=== PATIENT | female | born 1960 | race Hispanic/Latino ===

== ENCOUNTER 2018-09-27 11:39 | Inpatient (IN) | payer SELFPAY ==
[~2018-09-27 11:39] MED LIST: ISOVUE-370 76%-LOCM 1 ML ONE
[2018-09-27 12:53] LABS: #Basophils 0.1 thou/uL (0.0-0.2); #Eosinphils 0.1 thou/uL (0.0-0.7); #Monocytes 0.6 thou/uL (0.11-0.59); #Neutrophils 6.6 thou/uL (1.40-6.50); %Basophils 0.6 % (0.0-1.0); %Eosinophils 0.7 % (0.0-10.0); %Lymphocytes 21.3 % (21.0-51.0); %Monocytes 6.8 % (0.0-10.0); %Neutrophils 70.6 % (42.0-75.0); Hemoglobin 11.2 g/dL (12.0-16.0); MDiff Complete? YES; Mean Corpuscular HGB CONC 29.4 g/dL (32.0-36.0); Mean Corpuscular Hemoglobin 22.2 pg (27.0-31.0); Mean Corpuscular Volume 75.5 fL (78.0-98.0); Mean Platelet Volume 10.7 fL (7.4-10.4); Microcytosis SLIGHT = 6-15 cells (100X) (0-5/hpf); Platelet Count 215 thou/uL (130-400); Polychromasia SLIGHT = 2-3 cells (100X) (0-2/hpf); RBC Distribution Width 16.9 % (11.5-14.5); Red Blood Cell (RBC) Count 5.06 mill/uL (4.20-5.40); White Blood Cell (WBC) Count 9.3 thou/uL (4.8-10.8)
[2018-09-27 13:00] LABS: ALT (SGPT) 21 U/L (8-55); AST (SGOT) 18 U/L (5-34); Albumin 3.6 g/dL (3.5-5.0); Alkaline Phosphatase 86 U/L (40-150); Anion Gap 14 mmol/L (10-20); BUN (Urea Nitrogen) 17 mg/dL (9.8-20.1); Bilirubin, Total 0.6 mg/dL (0.2-1.2); CK (CPK) 40 U/L (29-168); Calc. Creatinine Clearance 0 mL/min (70-130); Calcium 9.3 mg/dL (7.8-10.44); Carbon Dioxide 34 mmol/L (22-29); Chloride 93 mmol/L (98-107); Estimated GFR-MDRD 84; Globulin 3.6 g/dL (2.4-3.5); Glucose 306 mg/dL (70-105); Lipase 12 U/L (8-78); Potassium 3.9 mmol/L (3.5-5.1); Protein, Total 7.2 g/dL (6.0-8.3); Sodium 137 mmol/L (136-145)
[2018-09-27 13:04] LABS: Troponin I 0.016 ng/mL (< 0.028)
[2018-09-27 15:17] LABS: Bilirubin Negative (Negative); Blood, Urine Negative (Negative); Clarity CLEAR (Clear); Glucose, Urine (Dipstick) Negative (Negative); Leukocyte Negative (Negative); Nitrite Negative (Negative); Protein, Urine (Dipstick) Negative (Neg-Trace); pH, Urine 7.5 (5.0-9.0)
[2018-09-27] MEDS ORDERED: Nitroglycerin 2% Ointment 1 INCH/1 GM Packet ONE (15:18)
[2018-09-27] MEDS ORDERED: Furosemide 40 MG/4 ML VIAL ONE (15:18)
--- NOTE | 2018-09-27 15:21 | RAD ---
CHEST 1 VIEW: HISTORY: Dyspnea. COMPARISON: None. FINDINGS: Heart size is enlarged. Mild pulmonary venous congestion. No pneumothorax. Calcific tendinosis right rotator cuff. IMPRESSION: Cardiomegaly with mild pulmonary venous congestion. POS: [facility]
[2018-09-27 15:26] LABS: Specific Gravity, Urine 1.052 (1.002-1.036)
--- NOTE | 2018-09-27 15:40 | CT ---
CT ANGIOGRAM OF CHEST WITH CONTRAST: HISTORY: Chest pain. COMPARISON: Radiograph same day. FINDINGS: CT angiogram of chest is performed after the intravenous administration of contrast. Three-D renderi ng is provided. There is dilatation of the pulmonary trunk measuring up to 34 mm. There is no proximal segmental pul monary arterial filling defect. Heart size is enlarged. No significant pericardial effusion. Limit ed evaluation of the upper abdomen is unremarkable. Small paratracheal lymph nodes are present. The aortic size is nonaneurysmal. There is mild edema in the peribronchial vascular interstitium. No pneumothorax. No significant eff usion. No evidence for pneumonia. The sternum, manubrium, and visualized portion of the clavicles are intac t. No thoracic spine compression fracture. No acute displaced rib fracture. IMPRESSION: 1. No proximal segmental pulmonary arterial filling defect. 2. Cardiomegaly and mild pulmonary venous hypertension. 3. No evidence for pneumonia. 4. Dilatation of the pulmonary trunk suggesting pulmonary arterial hypertension. POS: [facility]
[2018-09-27 15:53] LABS: Troponin I 0.022 ng/mL (< 0.028)
--- NOTE | 2018-09-27 15:53 | HP ---
DATE OF ADMISSION: 09/27/2018 PRIMARY CARE PHYSICIAN: Walter Chadwick M.D. REASON FOR ADMISSION: Acute hypoxic respiratory failure. HISTORY OF PRESENT ILLNESS: A 58-year-old female who speaks Panamanian only, so history obtain ed with the help of family member who are present at bedside in the emergency room. They helped me t o interpret for her. The patient has a long history of increasing shortness of breath for about 1-2 months, but this dyspn ea is gradually getting worse to the point that now the patient only able to walk 10 steps and she ge ts out of breath. She does have increasing bilateral lower extremity pitting edema. The patient als o has for the last 3 days cough productive of clear sputum. She does give a history of classic ortho pnea or PND. She denies any palpitations or syncope, but she does feel dizziness and weakness. Fami ly member reports that she snores during night time and she remained sleepy during daytime. Whenever family member talking to her, she intermittently gets to sleep during daytime. She always feels fat igued. She also gained significant amount of weight for the last one month. She denies any flu-like illness. She denies any fever or chills. She denies any urinary tract infections. She denies any constipation, diarrhea, melena or hematochezia. The patient was previously following [facility], but subsequently she changed her primary care physi pillo and she was following Dr. Walter Chadwick. When she saw her today, she was found hypoxic. Her oxy gen saturation was 86% on room air and that is why she was directed to emergency room for evaluation. In the emergency room, chest x-ray was unremarkable. She had slightly elevated D-dimer and that is why CT angio was done, which was negative for pulmonary embolism, but found with pulmonary hypertens ion. REVIEW OF SYSTEMS: The following complete review of systems was negative, unless otherwise mentioned in the HPI or below: Constitutional: Weight loss or gain, ability to conduct usual activities. Sk in: Rash, itching. Eyes: Double vision, pain. ENT/Mouth: Nose bleeding, neck stiffness, pain, te nderness. Cardiovascular: Palpitations, dyspnea on exertion, orthopnea. Respiratory: Shortness of breath, wheezing, cough, hemoptysis, fever or night sweats. Gastrointestinal: Poor appetite, abdom inal pain, heartburn, nausea, vomiting, constipation, or diarrhea. Genitourinary: Urgency, frequenc y, dysuria, nocturia. Musculoskeletal: Pain, swelling. Neurologic/Psychiatric: Anxiety, depressio n. Allergy/Immunologic: Skin rash, bleeding tendency. Please see my HPI for pertinent positive and negative. All other review of system reviewed and negative except as mentioned in the HPI. PAST MEDICAL HISTORY: Morbid obesity, hypertension, dyslipidemia, diabetes type 2. PAST SURGICAL HISTORY: x3. PAST PSYCHIATRIC HISTORY: Reviewed and negative. SOCIAL HISTORY: The patient is and lives at home with family. No history of tobacco, alcoho l or illicit drug abuse. FAMILY HISTORY: Diabetes and hypertension runs among several family members. No strong family histo ry of premature coronary artery disease, stroke or cancer. ALLERGIES: No known drug allergy. CURRENT HOME MEDICATIONS: Glipizide 10 mg twice daily, metformin 1000 mg twice daily, losartan 100 m g daily, hydrochlorothiazide 25 mg p.o. daily, pravastatin 20 mg p.o. daily, gabapentin 600 mg twice daily, Levemir 22 units subcu daily. EMERGENCY ROOM COURSE: Initially, the patient was given levofloxacin presuming pneumonia. Subsequen tly, the patient was given nitro patch, aspirin 324 mg, Lasix 40 mg and IV fluid 1 liter. PHYSICAL EXAMINATION: VITAL SIGNS: On arrival, blood pressure 159/84, pulse 71, respiratory rate 24, temperature 97.7, sat uration 86% on room air, weight 94.8 kilograms. GENERAL: The patient is currently alert, awake, in no obvious acute distress. The patient is gettin g out of breath very quickly, even with a little effort. HEAD: Normocephalic, atraumatic. EYES: Pupils round and reactive to light. Extraocular muscle intact. ENT: Oropharynx within normal limits. Moist mucous membranes. No oral lesion, no pharyngeal erythe ma, no exudate. NECK: Elevated JVD, no thyromegaly, no carotid bruit, no meningeal signs of irritation. LUNGS: Coarse breath sounds. Few basal rales noted. No accessory muscles of respiration in use. CARDIAC: S1, S2 regular. Distant heart sound. Unable to elicit any murmur, no gallop, no rub. ABDOMEN: Morbid obesity limiting examination. Bowel sounds present, nontender, nondistended. No or ganomegaly, no mass, no suprapubic tenderness. BACK: Unremarkable. No CVA tenderness. EXTREMITIES: Upper extremities, passive movement of all joints are normal. Lower extremities, bilat eral lower extremity pitting edema noted. Good distal pulsation. SKIN: No skin rash. HEMATOLOGICAL: No lymphadenopathy. PSYCHIATRIC: Normal affect. NEUROLOGIC: Nonfocal examination. SIGNIFICANT LABORATORY DATA: engine monitor showing sinus rhythm. EKG showing right bundle branc h block. Chest x-ray showing cardiomegaly and pulmonary vascular congestion noted. CT angio negativ e for pulmonary embolism, noted for pulmonary hypertension. CBC, WBC 9.3, hemoglobin 11.2, platelet 215,000. D-dimer 0.59. BMP, sodium 137, potassium 3.9, chloride 93, carbon dioxide 34, anion gap 14, BUN 17, creatinine 0.71 . Glucose 306, calcium 9.3. Lactic acid 1.8. LFT, AST 18, ALT 21, alkaline phosphatase 86, albumin 3.6. CK 40, CK-MB 2.0. Troponin I 0.014. BNP 441.4. Lactic acid 1.8. ASSESSMENT AND PLAN: 1. Acute respiratory failure with hypoxia. I am suspecting that based on history and physical, the patient most likely has sleep apnea and right-sided heart failure contributing to hypoxic respiratory failure as well as right-sided heart failure. The patient will need further evaluation. We will mo nitor oxygen saturation while in hospital. We will do ABG. The patient will need CPAP machine durin g nighttime and during sleep. We will avoid sedative medication. 2. Acute congestive heart failure, suspecting predominantly right-sided heart failure from hypoxia i nduced tricuspid regurgitation and pulmonary hypertension. The patient might have underlying diastol ic dysfunction. To confirm type of congestive heart failure, we will obtain echocardiography to asse ss ejection fraction and other structural abnormality. The patient will need diuretic therapy with L asix 40 mg IV b.i.d. We will monitor renal function and electrolytes and replace accordingly. Cardi ac rehabilitation will be consulted. We will check magnesium, TSH, uric acid and ferritin level mellissa rrow. We will continue with Coreg 3.125 mg twice daily and losartan 100 mg p.o. daily, nitropatch q. 8 hourly for high blood pressure. 3. Morbid obesity and obstructive sleep apnea. Obstructive sleep apnea suspected based on history. We will do ABG to rule out any CO2 retention. We will avoid any sedative medication. This patient will need pulmonary function test as well as sleep study as an outpatient basis after stabilization. 4. Diabetes type 2. We will hold metformin because of CT angio done today. We will continue the gl ipizide 10 mg p.o. b.i.d. and Lantus insulin 22 units subcu b.i.d. Diabetic diet will be given. Ins ulin as per sliding scale per protocol. 5. Diabetic neuropathy. Continue gabapentin 600 mg p.o. b.i.d. as per home dosage. 6. Dyslipidemia. Continue pravastatin 20 mg p.o. at bedtime and check lipid profile tomorrow emil coker. 7. Hypertension. The patient will continue Coreg, losartan, Lasix and we will titrate blood pressur e medication as needed basis. 8. Deep venous thrombosis prophylaxis. Lovenox 40 mg subcu daily. 9. Gastrointestinal prophylaxis. Pepcid 20 mg p.o. b.i.d. 10. Code status: The patient is full code. The patient does not have any surrogate decision maker. Disposition plan based on clinical course. We are expecting the patient's stay in hospital more than 2 midnights. Plan of care discussed with the patient and family member at bedside.
[2018-09-27] MEDS ORDERED: Ondansetron ODT 4 MG TAB SL PRN (17:19)
[2018-09-27] MEDS ORDERED: Ondansetron PF 4 MG/2 ML Vial IVP PRN ×2 (17:19→17:27)
[2018-09-27] MEDS ORDERED: Eucerin (Mineral Oil/Petrolatum,White) 30 gm Jar TOP PRN (17:27)
[2018-09-27] MEDS ORDERED: Acetaminophen 325 MG TAB PO PRN (17:27)
[2018-09-27] MEDS ORDERED: Cepastat Lozenges 1 LOZ PO PRN (17:27)
[2018-09-27] MEDS ORDERED: hydrALAZINE 20 MG/ML VIAL SLOW IVP PRN (17:27)
[2018-09-27] MEDS ORDERED: Bisacodyl 5 MG TAB PO PRN (17:27)
[2018-09-27] MEDS ORDERED: Diabetic Tussin 200 MG/10 ML UDCUP PO PRN (17:27)
[2018-09-27] MEDS ORDERED: Dextrose 50% Abboject 50 ML SYRINGE SLOW IVP PRN (17:27)
[2018-09-27] MEDS ORDERED: Senokot S 8.6-50 MG TAB PO PRN (17:27)
[2018-09-27] MEDS ORDERED: Calcium Carbonate 500 MG ChewTAB PO PRN (17:27)
[2018-09-27] MEDS ORDERED: Bisacodyl 10 MG SUPP PR PRN (17:27)
[2018-09-27] MEDS ORDERED: Nitroglycerin 0.4 MG TAB (25 Tab Bottle) SL PRN (17:27)
[2018-09-27] MEDS ORDERED: Loperamide HCl 2 MG CAP PO PRN (17:27)
[2018-09-27] MEDS ORDERED: Dextrose 5% in Water 1,000 ML IV PRN (17:27)
[2018-09-27] MEDS ORDERED: Artificial Tear Sol 15 ML BOT EA EYE PRN (17:27)
[2018-09-27] MEDS ORDERED: Ondansetron ODT 4 MG TAB PO PRN (17:27)
[2018-09-27] MEDS ORDERED: Sodium Chloride 0.65% Nasal 44 ML BOT EA NARE PRN (17:27)
[2018-09-27] MEDS ORDERED: glipiZIDE 5 MG TAB PO SCH (17:45)
[2018-09-27] MEDS ORDERED: Nitroglycerin 2% Ointment 1 INCH/1 GM Packet TOP SCH (18:00)
[2018-09-27] MEDS: HumaLOG 300 UNITS/3 ML VIAL SC PRN (18:44)
[2018-09-27 18:55] LABS: Actual Bicarbonate (HCO3a) 30.9 mEq/L (22-28); Base Excess (BEa) 5.3 mEq/L (-2.0 to +3.0); CO2 Tension 49.9 mmHg (35.0-45.0); Carboxyhemoglobin (COHb) 1.3 gm% (0.0-3.0); Hemoglobin (Hb) 11.5 g/dL (12.0-16.0); O2 Tension (PaO2) 70.6 mmHg (> 80.0); pH, Arterial 7.41 (7.35-7.45)
[2018-09-27 18:56] LABS: ALV-art Gradient 66.665 (0-20); Analyzer IN Cardio OR; Calcium, Ionized 1.12 mmol/L (1.12-1.30); Potassium - ABG Lab 3.43 mmol/L (3.70-5.30); Puncture Site R RADIAL
[2018-09-27 19:51] LABS: Troponin I 0.031 ng/mL (< 0.028)
[2018-09-27] MEDS ORDERED: Furosemide 40 MG/4 ML VIAL SLOW IVP SCH (21:00)
[2018-09-27] MEDS: Carvedilol 3.125 MG TAB PO SCH (21:53)
[2018-09-27] MEDS: Famotidine 20 MG TAB PO SCH (21:53)
[2018-09-27] MEDS: Gabapentin 300 MG CAP PO SCH (21:53)
[2018-09-27] MEDS: Simvastatin 5 MG TAB PO SCH (21:53)
[2018-09-27] MEDS: Nitroglycerin 2% Ointment 1 INCH/1 GM Packet TOP SCH (21:54)
[2018-09-28] MEDS: Nitroglycerin 2% Ointment 1 INCH/1 GM Packet TOP SCH ×3 (05:43→21:46)
[2018-09-28] MEDS: Furosemide 40 MG/4 ML VIAL SLOW IVP SCH ×2 (05:43→14:11)
[2018-09-28 05:50] LABS: #Eosinphils 0.1 thou/uL (0.0-0.7); #Lymphocytes 1.4 thou/uL (1.20-3.40); #Monocytes 0.6 thou/uL (0.11-0.59); #Neutrophils 5.2 thou/uL (1.40-6.50); %Basophils 0.3 % (0.0-1.0); %Eosinophils 1.6 % (0.0-10.0); %Lymphocytes 18.7 % (21.0-51.0); %Monocytes 8.6 % (0.0-10.0); %Neutrophils 70.8 % (42.0-75.0); Hemoglobin 10.9 g/dL (12.0-16.0); Mean Corpuscular HGB CONC 29.4 g/dL (32.0-36.0); Mean Corpuscular Hemoglobin 22.2 pg (27.0-31.0); Mean Corpuscular Volume 75.7 fL (78.0-98.0); Mean Platelet Volume 10.4 fL (7.4-10.4); Platelet Count 209 thou/uL (130-400); RBC Distribution Width 16.5 % (11.5-14.5); Red Blood Cell (RBC) Count 4.92 mill/uL (4.20-5.40); White Blood Cell (WBC) Count 7.4 thou/uL (4.8-10.8)
[2018-09-28 06:10] LABS: ALT (SGPT) 22 U/L (8-55); AST (SGOT) 23 U/L (5-34); Albumin 3.6 g/dL (3.5-5.0); Alkaline Phosphatase 90 U/L (40-150); Anion Gap 10 mmol/L (10-20); BUN (Urea Nitrogen) 15 mg/dL (9.8-20.1); Bilirubin, Total 0.6 mg/dL (0.2-1.2); Calc. Creatinine Clearance 124 mL/min (70-130); Calcium 9.1 mg/dL (7.8-10.44); Carbon Dioxide 37 mmol/L (22-29); Cardiac Risk 4.3 (Less than 4.5); Chloride 94 mmol/L (98-107); Cholesterol 145 mg/dl (< 200 Desired); Estimated GFR-MDRD 85; Globulin 3.6 g/dL (2.4-3.5); Glucose 293 mg/dL (70-105); HDL Cholesterol 34 mg/dL (>60 Neg Risk); LDL Cholesterol, Calculated 80 mg/dL; Magnesium 1.7 mg/dL (1.6-2.6); Potassium 3.9 mmol/L (3.5-5.1); Protein, Total 7.2 g/dL (6.0-8.3); Sodium 137 mmol/L (136-145); Triglycerides 154 mg/dL (Less than 150); Uric Acid 4.5 mg/dL (2.6-6.0)
[2018-09-28 06:27] LABS: Ferritin 8.4 ng/mL (10-291); Thyroid Stimulating Hormone 1.4026 uIU/mL (0.35-4.94)
[2018-09-28] MEDS ORDERED: Iron Sucrose Complex 200 MG in Sodium Chloride 0.9% 250 ML 250 ML IVPB SCH (07:30)
[2018-09-28] MEDS ORDERED: Iron, Sodium Ferric Gluconate 250 MG in Sodium Chloride 0.9% 100 ML IVPB SCH (08:00)
[2018-09-28] MEDS ORDERED: Insulin Glargine 35 UNITS in Pre-Filled Syringe 1 EACH SC SCH (09:00)
[2018-09-28] MEDS ORDERED: Insulin Glargine 22 UNITS in Pre-Filled Syringe 1 EACH SC SCH (09:00)
[2018-09-28] MEDS: Enoxaparin Sodium 40 MG/0.4 ML SYRINGE SC SCH (09:32)
[2018-09-28] MEDS: Famotidine 20 MG TAB PO SCH ×2 (09:33→21:45)
[2018-09-28] MEDS: glipiZIDE 5 MG TAB PO SCH ×2 (09:33→16:24)
[2018-09-28] MEDS: Aspirin 325 MG TAB PO SCH (09:33)
[2018-09-28] MEDS: Losartan 25 MG TAB PO SCH (09:33)
[2018-09-28] MEDS: Gabapentin 300 MG CAP PO SCH ×2 (09:34→21:36)
[2018-09-28] MEDS: Ferrous Sulfate 325 MG TAB PO SCH (09:34)
[2018-09-28] MEDS: Carvedilol 3.125 MG TAB PO SCH ×2 (09:34→21:35)
--- NOTE | 2018-09-28 10:00 | PDOC.PN ---
- Subjective Encounter Start Date: 09/28/18 Encounter Start Time: 07:40 Patient seen and examined. No new complaints. No overnight events, has dyspnea - Objective Resuscitation Status: Resuscitation Status FULL:Full Resuscitation MAR Reviewed: Yes Vital Signs & Weight: Vital Signs (12 hours) Temp Pulse Resp BP BP Pulse Ox 09/28/18 07:55 92 L 09/28/18 07:53 68 20 90 L 09/28/18 07:37 98.0 F 70 20 148/70 H 92 L 09/28/18 04:00 97.6 F 70 14 142/62 H 95 09/27/18 23:53 94 L 09/27/18 23:05 65 174/77 H Weight Weight 203 lb Result Diagrams: 09/28/18 05:20 09/28/18 05:20 Additional Labs: Accuchecks 09/28/18 09/27/18 09/27/18 05:55 21:11 18:05 POC Glucose 295 H 367 H 292 H EKG Reviewed by me: Yes (nsr) Phys Exam - Physical Examination Constitutional: NAD HEENT: PERRLA, moist MMs, sclera anicteric pallor+ Neck: supple high JVD Respiratory: no wheezing, no rhonchi few basal rales Cardiovascular: RRR, no rub SM+ Gastrointestinal: soft, non-tender, no distention, positive bowel sounds Obesity+ Musculoskeletal: pulses present, edema present Neurological: non-focal, normal sensation, moves all 4 limbs Lymphatic: no nodes Psychiatric: normal affect, A&O x 3 Skin: no rash, normal turgor Dx/Plan (1) Acute respiratory failure with hypoxia and hypercapnia Code(s): J96.01 - ACUTE RESPIRATORY FAILURE WITH HYPOXIA; J96.02 - ACUTE RESPIRATORY FAILURE WITH HYPERCAPNIA Status: Acute (2) Demand ischemia of myocardium Code(s): I24.8 - OTHER FORMS OF ACUTE ISCHEMIC HEART DISEASE Status: Acute (3) Pulmonary hypertension Code(s): I27.20 - PULMONARY HYPERTENSION, UNSPECIFIED Status: Acute (4) Diabetes type 2, controlled Code(s): E11.9 - TYPE 2 DIABETES MELLITUS WITHOUT COMPLICATIONS Status: Chronic (5) Dyslipidemia Code(s): E78.5 - HYPERLIPIDEMIA, UNSPECIFIED Status: Chronic (6) Hypertension Code(s): I10 - ESSENTIAL (PRIMARY) HYPERTENSION Status: Chronic (7) Iron deficiency anemia Code(s): D50.9 - IRON DEFICIENCY ANEMIA, UNSPECIFIED Status: Chronic (8) Obesity (BMI 30-39.9) Code(s): E66.9 - OBESITY, UNSPECIFIED Status: Chronic (9) JASMYN (obstructive sleep apnea) Code(s): G47.33 - OBSTRUCTIVE SLEEP APNEA (ADULT) (PEDIATRIC) Status: Suspected - Plan cont current plan of care * check fobt * give venofer IV one dose * add ferrous sulfate * continue diuresis * medication reviewed as below * symptomatic treatment. * echo pending * increase levemir Review of Systems - Review of Systems Constitutional: weakness. negative: fever, chills, sweats, malaise, other ENT: negative: Ear Pain, Ear Discharge, Nose Pain, Nose Discharge, Nose Congestion, Mouth Pain, Mouth Swelling, Throat Pain, Throat Swelling, Other Respiratory: Shortness of Breath, SOB with Excertion. negative: Cough, Dry, Hemoptysis, Pleuritic Pain, Sputum, Wheezing Cardiovascular: edema. negative: chest pain, palpitations, orthopnea, paroxysmal nocturnal dyspnea, light headedness, other Gastrointestinal: negative: Nausea, Vomiting, Abdominal Pain, Diarrhea, Constipation, Melena, Hematochezia, Other Genitourinary: negative: Dysuria, Frequency, Incontinence, Hematuria, Retention , Other Musculoskeletal: negative: Neck Pain, Shoulder Pain, Arm Pain, Back Pain, Hand Pain, Leg Pain, Foot Pain, Other Skin: negative: Rash, Lesions, Gasper, Bruising, Other - Medications/Allergies Allergies/Adverse Reactions: Allergies Allergy/AdvReac Type Severity Reaction Status Date / Time levofloxacin [From Levaquin] Allergy Verified 09/27/18 18:14 Medications: Current Medications Acetaminophen (Tylenol) 650 mg PO Q4H PRN PRN Reason: Headache/Fever/Mild Pain (1-3) Albuterol/Ipratropium (Duoneb) 3 ml NEB [id number] [facility] Last Admin: 09/28/18 07:53 Dose: 3 ml Artificial Tears (Tears Renewed 15ml Bottle) 2 drop EA EYE PRN PRN PRN Reason: Dry Eyes Aspirin (Aspirin) 325 mg PO DAILY [facility] Last Admin: 09/28/18 09:33 Dose: 325 mg Bisacodyl (Dulcolax) 10 mg PO DAILYPRN PRN PRN Reason: Constipation Bisacodyl (Dulcolax) 10 mg NH DAILYPRN PRN PRN Reason: Constipation Calcium Carbonate (Tums) 1,000 mg PO Q4H PRN PRN Reason: Heartburn or Indigestion Carvedilol (Coreg) 3.125 mg PO BID [facility] Last Admin: 09/28/18 09:34 Dose: 3.125 mg Dextrose/Water (Dextrose 50%) 25 gm SLOW IVP PRN PRN PRN Reason: Hypoglycemia Enoxaparin Sodium (Lovenox) 40 mg SC 0900 [facility] Last Admin: 09/28/18 09:32 Dose: 40 mg Famotidine (Pepcid) 20 mg PO BID [facility] Last Admin: 09/28/18 09:33 Dose: 20 mg Ferrous Sulfate (Feosol) 325 mg PO QA-[facility] Last Admin: 09/28/18 09:34 Dose: 325 mg Furosemide (Lasix) 40 mg SLOW IVP 0600,1400 [facility] Last Admin: 09/28/18 05:43 Dose: 40 mg Gabapentin (Neurontin) 600 mg PO BID [facility] Last Admin: 09/28/18 09:34 Dose: 600 mg Glipizide (Glucotrol) 10 mg PO BID-AC [facility] Last Admin: 09/28/18 09:33 Dose: 10 mg Glucagon (Glucagon) 1 mg IM PRN PRN PRN Reason: Hypoglycemia Guaifenesin (Robitussin Sf) 200 mg PO Q4H PRN PRN Reason: Cough Hydralazine HCl (Apresoline) 10 mg SLOW IVP Q4H PRN PRN Reason: SBP > 180 and HR < 70 Dextrose/Water (D5w) 1,000 mls @ 0 mls/hr IV .Q0M PRN PRN Reason: Hypoglycemia Insulin Glargine 35 units/ (Miscellaneous Medication) 0.35 mls @ 0 mls/hr SC QAM [facility] Last Admin: 09/28/18 09:32 Dose: 0.35 mls Insulin Human Lispro (Humalog) 0 units SC .MODERATE SLIDING SC PRN PRN Reason: Moderate Correctional Scale Last Admin: 09/27/18 18:44 Dose: 6 unit Insulin Human Lispro (Humalog) 0 units SC .BEDTIME SLIDING SC PRN PRN Reason: Bedtime Correctional Scale Loperamide HCl (Imodium) 2 mg PO PRN PRN PRN Reason: Diarrhea/Loose Stools Losartan Potassium (Cozaar) 100 mg PO DAILY [facility] Last Admin: 09/28/18 09:33 Dose: 100 mg Mineral Oil/White Petrolatum (Eucerin Cream) 0 gm TOP BIDPRN PRN PRN Reason: Dry Skin Nitroglycerin (Nitrostat) 0.4 mg SL Q5MIN PRN PRN Reason: Chest Pain Nitroglycerin (Nitro-Bid 2% Ointment) 0.5 inch TOP Q8HR [facility] Last Admin: 09/28/18 05:43 Dose: 0.5 inch Ondansetron HCl (Zofran Odt) 4 mg PO Q6H PRN PRN Reason: Nausea/Vomiting Ondansetron HCl (Zofran) 4 mg IVP Q6H PRN PRN Reason: Nausea/Vomiting Senna/Docusate Sodium (Senokot S) 2 tab PO BID PRN PRN Reason: Constipation Simvastatin (Zocor) 10 mg PO HS [facility] Last Admin: 09/27/18 21:53 Dose: 10 mg Sodium Chloride ([place]al [place] 0.65%) 0 ml EA NARE QIDPRN PRN PRN Reason: Nasal Congestion Throat Lozenges (Cepastat Lozenges) 1 bibi PO Q2H PRN PRN Reason: Sore Throat
[2018-09-28] MEDS: HumaLOG 300 UNITS/3 ML VIAL SC PRN ×2 (14:11→21:36)
--- NOTE | 2018-09-28 20:56 | CON ---
DATE OF ADMISSION: 09/27/2018 DATE OF CONSULTATION: 09/28/2018 INDICATION FOR CONSULTATION: A 58-year-old female with acute hypoxic respiratory failure. HISTORY OF PRESENT ILLNESS: This very unfortunate 58-year-old female who speaks only Sp[place] h, has significant obesity. She has been at home. She has minimal activity. She does cook, however , and moves around except a lot of time she just sits and does nothing and she has become increasingl y short of breath and more lethargic over the last 1-2 months. She is unable to walk only minimal di stances without getting significant shortness of breath and has to stop. She has been complaining of some bilateral lower extremity edema and for the last couple days has also been complaining of a cou gh with some clear sputum. She did have a history of diastolic dysfunction in the past and also left ventricular hypertrophy and it appears she also has sleep apnea, but she is not on a mask at home. She has had no recent fevers or any other significant complaints. She was seen in the office by the primary care physician yesterday and has had an O2 saturation of 86%, was advised to go to the emerge ncy room where she was evaluated. CT scan did not show any evidence of pulmonary embolus, but she wa s noted to have some pulmonary hypertension. Echocardiogram shows ejection fraction of 60-65% with d iastolic dysfunction and evidence of probable pulmonary hypertension. The right ventricle is somewha t dilated and also there is some mild flattening of the septum compatible with volume overload in the right side or pulmonary hypertension with right-sided elevated pressures. She also has left ventric ular hypertrophy as well as left atrial dilatation, mild mitral and pulmonary valve regurgitation. A t this time, she is very difficult to arouse and she was to continue to go back to sleep, but she was able to have some discussion with her in view of her family members who were there who did do some s peaking with the patient and also translation. REVIEW OF SYSTEMS: Please refer to the notes already dictated. I did not hear any new complaints ex cept for the fatigue and the shortness of breath and very sleepy. PAST MEDICAL HISTORY: Significant for diabetes, dyslipidemia, hypertension, morbid obesity. She has had three C-sections. SOCIAL HISTORY: She lives at home. She is . She has no history of alcohol or tobacco abuse. FAMILY HISTORY: Present for history of hypertension, diabetes, and no early family history of heart disease. ALLERGIES: None. MEDICATIONS: Prior to admission included glipizide, metformin, losartan/hydrochlorothiazide, pravast atin, gabapentin, Levemir. She has been placed on levofloxacin for possible pneumonia. She has also been given a nitroglycerin patch, aspirin and Lasix. She also was given IV fluids in the emergency room despite being given IV Lasix. PHYSICAL EXAMINATION: GENERAL: Reveals a middle-aged female who is in no acute distress. She is very somnolent, difficult to arouse and difficult to maintain her wakefulness while trying to carry on a physical examination with the patient. VITAL SIGNS: Her blood pressure is 119/58, heart rate is 62 and regular. She is afebrile, respirato ry rate is 19. HEENT: Shows head to be normocephalic and atraumatic. NECK: Carotid pulses are present. I did not hear any bruits. LUNGS: Her chest has decreased breath sounds throughout, but no rales, rhonchi or wheezing were note d. CARDIOVASCULAR: Reveals a regular rate and rhythm at this time. Heart sounds are somewhat distant. I cannot hear any significant murmurs, heaves, thrills, bruits or rubs. ABDOMEN: Shows morbid obesity. I cannot palpate any masses or tenderness. EXTREMITIES: Showed 1+ to 2+ lower extremity edema. Pedal pulses are difficult to palpate. NEUROLOGIC: The patient is very somnolent. She has no specific complaints otherwise. LABORATORY DATA: Shows hemoglobin 10.9, hematocrit 37.3, WBC of 7.4. Her potassium is 3.9, creatini ne is 0.7. Her troponin I on admission was 0.016, has increased up to 0.031. Her BNP was 441. ABG showed a pH of 7.41 with a pCO2 of 50 and a pO2 of 71, O2 saturations 93.8%. IMPRESSION AND PLAN: 1. Diastolic dysfunction with congestive heart failure symptoms, causing acute respiratory failure w ith hypoxia. She has been placed on oxygen here and seems to have had some improvement. She will mo st likely need a CPAP mask. She appears to have sleep apnea. Sleep apnea will be the etiology of he r right-sided elevated pressures and most likely pulmonary hypertension. I would agree with continui ng the diuretics at this time. 2. Morbid obesity. The patient should be advised on dietary habits and also try to get some exercis e to lose weight. 3. Type 2 diabetes. This will be dealt with rather primary care service. 4. Dyslipidemia. We will continue her present medications. 5. Hypertension. She is under relatively good control at this time. She is on beta-blockers, would advise continue these medications at this time. Further care of the patient will be by Dr. Parker garcia he sees her tomorrow. The patient will need at some point in time to have a documented sleep gonzalo dy performed.
[2018-09-28] MEDS: Simvastatin 5 MG TAB PO SCH (21:35)
[2018-09-29] MEDS: Nitroglycerin 2% Ointment 1 INCH/1 GM Packet TOP SCH (06:10)
[2018-09-29] MEDS: Furosemide 40 MG/4 ML VIAL SLOW IVP SCH ×2 (06:11→13:26)
[2018-09-29] MEDS ORDERED: Iron Sucrose Complex 200 MG in Sodium Chloride 0.9% 250 ML 250 ML IVPB SCH (07:15)
[2018-09-29] MEDS ORDERED: Iron, Sodium Ferric Gluconate 250 MG in Sodium Chloride 0.9% 100 ML IVPB SCH (08:15)
[2018-09-29] MEDS: Enoxaparin Sodium 40 MG/0.4 ML SYRINGE SC SCH (08:49)
[2018-09-29] MEDS: HumaLOG 300 UNITS/3 ML VIAL SC PRN ×2 (08:50→13:26)
[2018-09-29] MEDS: Losartan 25 MG TAB PO SCH (08:51)
[2018-09-29] MEDS: Aspirin 325 MG TAB PO SCH (08:52)
[2018-09-29] MEDS: Carvedilol 3.125 MG TAB PO SCH ×2 (08:52→21:34)
[2018-09-29] MEDS: Gabapentin 300 MG CAP PO SCH ×2 (08:52→21:34)
[2018-09-29] MEDS: Famotidine 20 MG TAB PO SCH ×2 (08:52→21:34)
[2018-09-29] MEDS: metFORMIN 500 MG TAB PO SCH ×2 (08:53→17:34)
[2018-09-29] MEDS: glipiZIDE 5 MG TAB PO SCH ×2 (08:53→17:34)
[2018-09-29] MEDS: Ferrous Sulfate 325 MG TAB PO SCH (08:54)
[2018-09-29] MEDS ORDERED: Non-Formulary Item 1 EACH (Insulin Detemir [Levemir Flextouch] 30 UNIT) SQ SCH (09:00)
[2018-09-29] MEDS: Insulin Glargine 30 UNITS in Pre-Filled Syringe 1 EACH SC SCH (10:25)
--- NOTE | 2018-09-29 13:27 | PDOC.PN ---
- Subjective Encounter Start Date: 09/29/18 Encounter Start Time: 10:00 Patient seen and examined. No new complaints. No overnight events - Objective Resuscitation Status: Resuscitation Status FULL:Full Resuscitation MAR Reviewed: Yes Vital Signs & Weight: Vital Signs (12 hours) Temp Pulse Resp BP BP Pulse Ox 09/29/18 13:24 64 20 92 L 09/29/18 12:00 98.1 F 62 14 121/59 L 93 L 09/29/18 08:00 98.7 F 77 16 172/79 H 94 L 09/29/18 06:55 62 18 93 L 09/29/18 04:00 97.7 F 61 16 123/60 94 L Weight Weight 204 lb 3.2 oz I&O: 09/28/18 09/29/18 09/30/18 06:59 06:59 06:59 Intake Total 510 Balance 510 Result Diagrams: 09/28/18 05:20 09/28/18 05:20 Additional Labs: Accuchecks 09/29/18 09/28/18 09/28/18 05:49 20:46 16:47 POC Glucose 214 H 236 H 174 H Radiology Reviewed by me: Yes (echo report noted) EKG Reviewed by me: Yes (nsr) Phys Exam - Physical Examination Constitutional: NAD HEENT: PERRLA, moist MMs, sclera anicteric Neck: supple, full ROM Respiratory: no wheezing, no rales, no rhonchi Cardiovascular: RRR, no significant murmur, no rub Gastrointestinal: soft, non-tender, no distention, positive bowel sounds Musculoskeletal: pulses present, edema present Neurological: non-focal, normal sensation, moves all 4 limbs Lymphatic: no nodes Psychiatric: normal affect, A&O x 3 Skin: no rash, normal turgor Dx/Plan (1) Acute respiratory failure with hypoxia and hypercapnia Code(s): J96.01 - ACUTE RESPIRATORY FAILURE WITH HYPOXIA; J96.02 - ACUTE RESPIRATORY FAILURE WITH HYPERCAPNIA Status: Acute (2) Demand ischemia of myocardium Code(s): I24.8 - OTHER FORMS OF ACUTE ISCHEMIC HEART DISEASE Status: Acute (3) Pulmonary hypertension Code(s): I27.20 - PULMONARY HYPERTENSION, UNSPECIFIED Status: Acute (4) Diabetes type 2, controlled Code(s): E11.9 - TYPE 2 DIABETES MELLITUS WITHOUT COMPLICATIONS Status: Chronic (5) Dyslipidemia Code(s): E78.5 - HYPERLIPIDEMIA, UNSPECIFIED Status: Chronic (6) Hypertension Code(s): I10 - ESSENTIAL (PRIMARY) HYPERTENSION Status: Chronic (7) Iron deficiency anemia Code(s): D50.9 - IRON DEFICIENCY ANEMIA, UNSPECIFIED Status: Chronic (8) Obesity (BMI 30-39.9) Code(s): E66.9 - OBESITY, UNSPECIFIED Status: Chronic (9) JASMYN (obstructive sleep apnea) Code(s): G47.33 - OBSTRUCTIVE SLEEP APNEA (ADULT) (PEDIATRIC) Status: Suspected - Plan cont current plan of care, plan discussed w/ family, respiratory therapy * ambulate and monitor oxygen saturation * continue lasix * give one more dose of venofer * medication reviewed as below * symptomatic treatment * discussed with family with emirati interpretor and explained test result and plan. Review of Systems - Review of Systems Constitutional: weakness. negative: fever, chills, sweats, malaise, other Eyes: negative: Pain, Vision Change, Conjunctivae Inflammation, Eyelid Inflammation, Redness, Other ENT: negative: Ear Pain, Ear Discharge, Nose Pain, Nose Discharge, Nose Congestion, Mouth Pain, Mouth Swelling, Throat Pain, Throat Swelling, Other Respiratory: Shortness of Breath, SOB with Excertion. negative: Cough, Dry, Hemoptysis, Pleuritic Pain, Sputum, Wheezing Cardiovascular: edema. negative: chest pain, palpitations, orthopnea, paroxysmal nocturnal dyspnea, light headedness, other Gastrointestinal: negative: Nausea, Vomiting, Abdominal Pain, Diarrhea, Constipation, Melena, Hematochezia, Other Genitourinary: negative: Dysuria, Frequency, Incontinence, Hematuria, Retention , Other Musculoskeletal: negative: Neck Pain, Shoulder Pain, Arm Pain, Back Pain, Hand Pain, Leg Pain, Foot Pain, Other Skin: negative: Rash, Lesions, Gasper, Bruising, Other - Medications/Allergies Allergies/Adverse Reactions: Allergies Allergy/AdvReac Type Severity Reaction Status Date / Time levofloxacin [From Levaquin] Allergy Verified 09/27/18 18:14 Medications: Current Medications Acetaminophen (Tylenol) 650 mg PO Q4H PRN PRN Reason: Headache/Fever/Mild Pain (1-3) Last Admin: 09/29/18 08:54 Dose: 650 mg Albuterol/Ipratropium (Duoneb) 3 ml NEB [id number] [facility] Last Admin: 09/29/18 13:24 Dose: 3 ml Artificial Tears (Tears Renewed 15ml Bottle) 2 drop EA EYE PRN PRN PRN Reason: Dry Eyes Aspirin (Aspirin) 325 mg PO DAILY [facility] Last Admin: 09/29/18 08:52 Dose: 325 mg Bisacodyl (Dulcolax) 10 mg PO DAILYPRN PRN PRN Reason: Constipation Bisacodyl (Dulcolax) 10 mg [place] DAILYPRN PRN PRN Reason: Constipation Calcium Carbonate (Tums) 1,000 mg PO Q4H PRN PRN Reason: Heartburn or Indigestion Carvedilol (Coreg) 3.125 mg PO BID [facility] Last Admin: 09/29/18 08:52 Dose: 3.125 mg Dextrose/Water (Dextrose 50%) 25 gm SLOW IVP PRN PRN PRN Reason: Hypoglycemia Enoxaparin Sodium (Lovenox) 40 mg SC 0900 [facility] Last Admin: 09/29/18 08:49 Dose: 40 mg Famotidine (Pepcid) 20 mg PO BID [facility] Last Admin: 09/29/18 08:52 Dose: 20 mg Ferrous Sulfate (Feosol) 325 mg PO QA-[facility] Last Admin: 09/29/18 08:54 Dose: 325 mg Furosemide (Lasix) 40 mg SLOW IVP 0600,1400 [facility] Last Admin: 09/29/18 06:11 Dose: 40 mg Gabapentin (Neurontin) 300 mg PO BID [facility] Last Admin: 09/29/18 08:52 Dose: 300 mg Glipizide (Glucotrol) 10 mg PO BID-AC [facility] Last Admin: 09/29/18 08:53 Dose: 10 mg Glucagon (Glucagon) 1 mg IM PRN PRN PRN Reason: Hypoglycemia Guaifenesin (Robitussin Sf) 200 mg PO Q4H PRN PRN Reason: Cough Hydralazine HCl (Apresoline) 10 mg SLOW IVP Q4H PRN PRN Reason: SBP > 180 and HR < 70 Dextrose/Water (D5w) 1,000 mls @ 0 mls/hr IV .Q0M PRN PRN Reason: Hypoglycemia Insulin Glargine 30 units/ (Miscellaneous Medication) 0.3 mls @ 0 mls/hr SC QAM [facility] Last Admin: 11/26/18 10:25 Dose: 0.3 mls Insulin Glargine 22 units/ (Miscellaneous Medication) 0.22 mls @ 0 mls/hr SC QPM-[facility] Insulin Human Lispro (Humalog) 0 units SC .MODERATE SLIDING SC PRN PRN Reason: Moderate Correctional Scale Last Admin: 09/29/18 08:50 Dose: 4 unit Insulin Human Lispro (Humalog) 0 units SC .BEDTIME SLIDING SC PRN PRN Reason: Bedtime Correctional Scale Last Admin: 09/28/18 21:36 Dose: 2 unit Loperamide HCl (Imodium) 2 mg PO PRN PRN PRN Reason: Diarrhea/Loose Stools Losartan Potassium (Cozaar) 100 mg PO DAILY [facility] Last Admin: 09/29/18 08:51 Dose: 100 mg Metformin HCl (Glucophage) 1,000 mg PO BID-[facility] Last Admin: 09/29/18 08:53 Dose: 1,000 mg Mineral Oil/White Petrolatum (Eucerin Cream) 0 gm TOP BIDPRN PRN PRN Reason: Dry Skin Nitroglycerin (Nitrostat) 0.4 mg SL Q5MIN PRN PRN Reason: Chest Pain Ondansetron HCl (Zofran Odt) 4 mg PO Q6H PRN PRN Reason: Nausea/Vomiting Ondansetron HCl (Zofran) 4 mg IVP Q6H PRN PRN Reason: Nausea/Vomiting Senna/Docusate Sodium (Senokot S) 2 tab PO BID PRN PRN Reason: Constipation Simvastatin (Zocor) 10 mg PO [facility] Last Admin: 09/28/18 21:35 Dose: 10 mg Sodium Chloride ([place] Nasal [place] 0.65%) 0 ml EA NARE QIDPRN PRN PRN Reason: Nasal Congestion Throat Lozenges (Cepastat Lozenges) 1 bibi PO Q2H PRN PRN Reason: Sore Throat
--- NOTE | 2018-09-29 16:28 | PDOC.CTH ---
Cardiology Progress Note - Subjective Breathing better but still needing supplemental O2, not close to baseline yet. - Objective Vital Signs Temp Pulse Pulse Pulse Resp BP BP 09/29/18 15:46 98.3 F 65 14 09/29/18 13:24 64 20 09/29/18 12:00 98.1 F 62 14 09/29/18 10:05 64 68 101/57 L 106/56 L 09/29/18 08:00 98.7 F 77 16 09/29/18 06:55 62 18 BP Pulse Ox 09/29/18 15:46 113/61 93 L 09/29/18 13:24 92 L 09/29/18 12:00 121/59 L 93 L 09/29/18 10:05 09/29/18 08:00 172/79 H 94 L 09/29/18 06:55 93 L Weight 204 lb 3.2 oz 09/28/18 09/29/18 09/30/18 06:59 06:59 06:59 Intake Total 510 Balance 510 - Physical Examination General/Neuro: alert & oriented x3, NAD Neck: no JVD present Lungs: CTA, unlabored respirations Heart: RRR Abdomen: NT/ND Extremities: + edema B (1+) - Telemetry Telemetry Rhythm: NSR - Labs Result Diagrams: 09/28/18 05:20 09/28/18 05:20 Troponin/CKMB CK-MB (CK-2) 2.0 ng/mL (0-6.6) 09/27/18 12:14 Troponin I 0.031 ng/mL (< 0.028) H 09/27/18 18:59 - Assessment/Plan 1. Acute on chronic diastolic CHF 2. HTN 3. Obesity 4. Likely sleep apnea. PLAN: - Continue IV lasix. - BP well controled.
[2018-09-29] MEDS ORDERED: INSULIN DETEMIR 22 UNIT SQ SCH (17:00)
[2018-09-29] MEDS: Insulin Glargine 22 UNITS in Pre-Filled Syringe 1 EACH SC SCH (17:35)
[2018-09-29] MEDS ORDERED: Insulin Glargine 22 UNITS in Pre-Filled Syringe 1 EACH SC SCH (21:00)
[2018-09-29] MEDS: Simvastatin 5 MG TAB PO SCH (21:33)
[2018-09-30] MEDS: Furosemide 40 MG/4 ML VIAL SLOW IVP SCH ×2 (05:50→15:29)
[2018-09-30 06:16] LABS: #Eosinphils 0.2 thou/uL (0.0-0.7); #Lymphocytes 1.5 thou/uL (1.20-3.40); #Monocytes 0.6 thou/uL (0.11-0.59); #Neutrophils 5.2 thou/uL (1.40-6.50); %Basophils 0.2 % (0.0-1.0); %Eosinophils 2.4 % (0.0-10.0); %Lymphocytes 19.9 % (21.0-51.0); %Monocytes 8.1 % (0.0-10.0); %Neutrophils 69.5 % (42.0-75.0); Hemoglobin 10.9 g/dL (12.0-16.0); Mean Corpuscular HGB CONC 28.9 g/dL (32.0-36.0); Mean Corpuscular Hemoglobin 22.2 pg (27.0-31.0); Mean Corpuscular Volume 76.9 fL (78.0-98.0); Mean Platelet Volume 10.4 fL (7.4-10.4); Platelet Count 211 thou/uL (130-400); RBC Distribution Width 17.1 % (11.5-14.5); Red Blood Cell (RBC) Count 4.88 mill/uL (4.20-5.40); White Blood Cell (WBC) Count 7.5 thou/uL (4.8-10.8)
[2018-09-30 06:30] LABS: BUN (Urea Nitrogen) 16 mg/dL (9.8-20.1); Calc. Creatinine Clearance 145 mL/min (70-130); Estimated GFR-MDRD Greater than 90; Glucose 112 mg/dL (70-105); Magnesium 1.6 mg/dL (1.6-2.6)
[2018-09-30 06:39] LABS: Anion Gap 14 mmol/L (10-20); Carbon Dioxide 38 mmol/L (22-29); Chloride 95 mmol/L (98-107); Potassium 3.8 mmol/L (3.5-5.1); Sodium 143 mmol/L (136-145)
[2018-09-30] MEDS: Ferrous Sulfate 325 MG TAB PO SCH (08:25)
[2018-09-30] MEDS: glipiZIDE 5 MG TAB PO SCH ×2 (08:25→16:45)
[2018-09-30] MEDS: metFORMIN 500 MG TAB PO SCH ×2 (08:25→16:45)
[2018-09-30] MEDS: Gabapentin 300 MG CAP PO SCH ×2 (08:26→21:34)
[2018-09-30] MEDS: Famotidine 20 MG TAB PO SCH ×2 (08:26→21:33)
[2018-09-30] MEDS: Enoxaparin Sodium 40 MG/0.4 ML SYRINGE SC SCH (08:26)
[2018-09-30] MEDS: Losartan 25 MG TAB PO SCH (08:26)
[2018-09-30] MEDS: Aspirin 325 MG TAB PO SCH (08:26)
[2018-09-30] MEDS: Carvedilol 3.125 MG TAB PO SCH ×2 (08:26→21:33)
[2018-09-30] MEDS: Insulin Glargine 30 UNITS in Pre-Filled Syringe 1 EACH SC SCH (08:32)
[2018-09-30] MEDS: HumaLOG 300 UNITS/3 ML VIAL SC PRN (12:00)
[2018-09-30] MEDS: Insulin Glargine 22 UNITS in Pre-Filled Syringe 1 EACH SC SCH (16:45)
--- NOTE | 2018-09-30 18:01 | PDOC.CTH ---
Cardiology Progress Note - Subjective She continues to diurese well. - Objective Vital Signs Temp Pulse Pulse Pulse Resp BP BP 09/30/18 16:00 97 F L 70 16 09/30/18 14:52 76 20 09/30/18 13:50 70 70 129/60 140/63 09/30/18 12:29 98.5 F 75 18 09/30/18 08:22 97.7 F 70 18 09/30/18 07:19 72 20 BP BP Pulse Ox Pulse Ox Pulse Ox 09/30/18 16:00 112/59 L 95 09/30/18 14:52 92 L 09/30/18 13:50 93 L 95 09/30/18 12:29 150/74 H 94 L 09/30/18 08:22 169/72 H 94 L 09/30/18 07:19 92 L Weight 202 lb 14.4 oz 09/29/18 09/30/18 10/01/18 06:59 06:59 06:59 Intake Total 510 1200 Balance 510 1200 - Physical Examination General/Neuro: alert & oriented x3, NAD Neck: no JVD present Lungs: CTA, unlabored respirations Heart: RRR Abdomen: NT/ND Extremities: + edema B (1+) - Telemetry Telemetry Rhythm: NSR - Labs Result Diagrams: 09/30/18 05:48 09/30/18 05:48 Troponin/CKMB CK-MB (CK-2) 2.0 ng/mL (0-6.6) 09/27/18 12:14 Troponin I 0.031 ng/mL (< 0.028) H 09/27/18 18:59 - Assessment/Plan 1. Acute on chronic diastolic CHF 2. HTN 3. Obesity 4. Likely sleep apnea. PLAN: - Continue IV lasix BID for now. - BP well controlled. - Home in next 24 to 48 hrs.
[2018-09-30] MEDS: Simvastatin 5 MG TAB PO SCH (21:33)
[2018-10-01] MEDS: Furosemide 40 MG/4 ML VIAL SLOW IVP SCH (06:13)
[2018-10-01] MEDS: Insulin Glargine 30 UNITS in Pre-Filled Syringe 1 EACH SC SCH (08:45)
[2018-10-01] MEDS: Enoxaparin Sodium 40 MG/0.4 ML SYRINGE SC SCH (08:50)
[2018-10-01] MEDS: glipiZIDE 5 MG TAB PO SCH ×2 (08:50→17:17)
[2018-10-01] MEDS: Aspirin 325 MG TAB PO SCH (08:51)
[2018-10-01] MEDS: Losartan 25 MG TAB PO SCH (08:51)
[2018-10-01] MEDS: Gabapentin 300 MG CAP PO SCH ×2 (08:52→22:15)
[2018-10-01] MEDS: metFORMIN 500 MG TAB PO SCH ×2 (08:52→17:17)
[2018-10-01] MEDS: Famotidine 20 MG TAB PO SCH ×2 (08:52→22:15)
[2018-10-01] MEDS: Carvedilol 3.125 MG TAB PO SCH ×2 (08:52→22:15)
[2018-10-01] MEDS: Ferrous Sulfate 325 MG TAB PO SCH (08:52)
[2018-10-01] MEDS: HumaLOG 300 UNITS/3 ML VIAL SC PRN ×3 (08:56→22:15)
[2018-10-01] MEDS ORDERED: Sodium Chloride 0.9% 10 ML ONE (12:10)
--- NOTE | 2018-10-01 12:40 | PDOC.CTH ---
Cardiology Progress Note - Subjective SOB minimally improved. Still needing oxygen, dropped to 70% off for 5 minutes. - Objective Vital Signs Temp Pulse Resp BP BP Pulse Ox 10/01/18 11:36 98.3 F 75 18 130/61 95 10/01/18 08:00 98.8 F 78 18 95 10/01/18 07:07 93 L 10/01/18 07:06 70 16 93 L 10/01/18 03:48 98.4 F 77 18 159/74 H 95 Weight 207 lb 09/30/18 10/01/18 10/02/18 06:59 06:59 06:59 Intake Total 1200 780 Output Total 1250 Balance 1200 -470 - Physical Examination General/Neuro: alert & oriented x3, NAD Neck: no JVD present Lungs: unlabored respirations, other: (crackles at bases) Heart: RRR Abdomen: NT/ND Extremities: + edema B (2+) - Telemetry Telemetry Rhythm: NSR - Labs Result Diagrams: 09/30/18 05:48 09/30/18 05:48 Troponin/CKMB CK-MB (CK-2) 2.0 ng/mL (0-6.6) 09/27/18 12:14 Troponin I 0.031 ng/mL (< 0.028) H 09/27/18 18:59 - Assessment/Plan 1. Acute on chronic diastolic CHF 2. HTN 3. Obesity 4. Likely sleep apnea. PLAN: - Still fluid overload. - Will increase dose of IV lasix. - BP well controlled.
[2018-10-01] MEDS ORDERED: Furosemide 40 MG/4 ML VIAL SLOW IVP SCH (12:45)
[2018-10-01] MEDS: predniSONE 20 MG TAB PO SCH (13:20)
--- NOTE | 2018-10-01 16:29 | PDOC.PN ---
- Subjective Encounter Start Date: 10/01/18 Encounter Start Time: 11:15 Subjective: pt up in chair wants to go home - Objective Resuscitation Status - Order Detail: 09/30/18 12:31 Resuscitation Status Routine Resuscitation Status: FULL: Full Resuscitation Discussed with: per previous MD order Vital Signs & Weight: Vital Signs (12 hours) Temp Pulse Pulse Pulse Resp BP BP 10/01/18 13:54 69 18 10/01/18 12:32 70 70 123/58 L 143/69 H 10/01/18 11:36 98.3 F 75 18 10/01/18 08:00 98.8 F 78 18 10/01/18 07:07 10/01/18 07:06 70 16 BP Pulse Ox Pulse Ox Pulse Ox 10/01/18 13:54 10/01/18 12:32 95 95 10/01/18 11:36 130/61 95 10/01/18 08:00 95 10/01/18 07:07 93 L 10/01/18 07:06 93 L Weight Weight 207 lb I&O: 09/30/18 10/01/18 10/02/18 06:59 06:59 06:59 Intake Total 1200 780 Output Total 1250 Balance 1200 -470 Result Diagrams: 09/30/18 05:48 09/30/18 05:48 Additional Labs: Accuchecks 10/01/18 10/01/18 09/30/18 11:10 06:00 20:57 POC Glucose 181 H 158 H 322 H 09/30/18 16:46 POC Glucose 109 Phys Exam - Physical Examination Neck: no nodes, no JVD, supple, full ROM crackles to bases Cardiovascular: RRR, no significant murmur, no rub, gallop, irregular Gastrointestinal: soft, non-tender, no distention, positive bowel sounds Musculoskeletal: no edema, pulses present, edema present Dx/Plan (1) Acute respiratory failure with hypoxia and hypercapnia Code(s): J96.01 - ACUTE RESPIRATORY FAILURE WITH HYPOXIA; J96.02 - ACUTE RESPIRATORY FAILURE WITH HYPERCAPNIA Status: Acute (2) Pulmonary hypertension Code(s): I27.20 - PULMONARY HYPERTENSION, UNSPECIFIED Status: Acute (3) Diabetes type 2, controlled Code(s): E11.9 - TYPE 2 DIABETES MELLITUS WITHOUT COMPLICATIONS Status: Chronic (4) Obesity (BMI 30-39.9) Code(s): E66.9 - OBESITY, UNSPECIFIED Status: Chronic (5) Iron deficiency anemia Code(s): D50.9 - IRON DEFICIENCY ANEMIA, UNSPECIFIED Status: Chronic - Plan pt is still sob and is on oxygen -: she has no hx of smoking or exposure -: she will need pft as outpatient, echo and cta indicated elevated pulmonary -: pressure. possible combination of obesity hypoventilation and elevated -: pulmonary pressure. will add steroids to see if this helps pt * . Review of Systems - Review of Systems Respiratory: negative: Cough, Dry, Shortness of Breath, Hemoptysis, SOB with Excertion, Pleuritic Pain, Sputum, Wheezing Cardiovascular: negative: chest pain, palpitations, orthopnea, paroxysmal nocturnal dyspnea, edema, light headedness, other Gastrointestinal: negative: Nausea, Vomiting, Abdominal Pain, Diarrhea, Constipation, Melena, Hematochezia, Other Genitourinary: negative: Dysuria, Frequency, Incontinence, Hematuria, Retention , Other - Medications/Allergies Allergies/Adverse Reactions: Allergies Allergy/AdvReac Type Severity Reaction Status Date / Time levofloxacin [From Levaquin] Allergy Verified 09/27/18 18:14 Medications: Current Medications Acetaminophen (Tylenol) 650 mg PO Q4H PRN PRN Reason: Headache/Fever/Mild Pain (1-3) Last Admin: 09/29/18 08:54 Dose: 650 mg Albuterol/Ipratropium (Duoneb) 3 ml NEB [id number] [facility] Last Admin: 10/01/18 13:54 Dose: 3 ml Artificial Tears (Tears Renewed 15ml Bottle) 2 drop EA EYE PRN PRN PRN Reason: Dry Eyes Aspirin (Aspirin) 325 mg PO DAILY [facility] Last Admin: 10/01/18 08:51 Dose: 325 mg Bisacodyl (Dulcolax) 10 mg PO DAILYPRN PRN PRN Reason: Constipation Last Admin: 09/30/18 08:31 Dose: 10 mg Bisacodyl (Dulcolax) 10 mg [place] DAILYPRN PRN PRN Reason: Constipation Calcium Carbonate (Tums) 1,000 mg PO Q4H PRN PRN Reason: Heartburn or Indigestion Carvedilol (Coreg) 3.125 mg PO BID [facility] Last Admin: 10/01/18 08:52 Dose: 3.125 mg Dextrose/Water (Dextrose 50%) 25 gm SLOW IVP PRN PRN PRN Reason: Hypoglycemia Enoxaparin Sodium (Lovenox) 40 mg SC 0900 [facility] Last Admin: 10/01/18 08:50 Dose: 40 mg Famotidine (Pepcid) 20 mg PO BID [facility] Last Admin: 10/01/18 08:52 Dose: 20 mg Ferrous Sulfate (Feosol) 325 mg PO QAM-[facility] Last Admin: 10/01/18 08:52 Dose: 325 mg Ferrous Sulfate (Ferrous Sulfulte) 300 mg PO DAILY [facility] Furosemide (Lasix) 80 mg SLOW IVP 0600,1400 [facility] Gabapentin (Neurontin) 300 mg PO BID [facility] Last Admin: 10/01/18 08:52 Dose: 300 mg Glipizide (Glucotrol) 10 mg PO BID-[facility] Last Admin: 10/01/18 08:50 Dose: 10 mg Glucagon (Glucagon) 1 mg IM PRN PRN PRN Reason: Hypoglycemia Guaifenesin (Robitussin Sf) 200 mg PO Q4H PRN PRN Reason: Cough Hydralazine HCl (Apresoline) 10 mg SLOW IVP Q4H PRN PRN Reason: SBP > 180 and HR < 70 Dextrose/Water (D5w) 1,000 mls @ 0 mls/hr IV .Q0M PRN PRN Reason: Hypoglycemia Insulin Glargine 30 units/ (Miscellaneous Medication) 0.3 mls @ 0 mls/hr [facility] [place] Last Admin: 10/01/18 08:45 Dose: 0.3 mls Insulin Glargine 22 units/ (Miscellaneous Medication) 0.22 mls @ 0 mls/hr SC Q-[facility] Last Admin: 09/30/18 16:45 Dose: 0.22 mls Insulin Human Lispro (Humalog) 0 units SC .MODERATE SLIDING SC PRN PRN Reason: Moderate Correctional Scale Last Admin: 10/01/18 13:20 Dose: 2 unit Insulin Human Lispro (Humalog) 0 units SC .BEDTIME SLIDING SC PRN PRN Reason: Bedtime Correctional Scale Last Admin: 09/28/18 21:36 Dose: 2 unit Loperamide HCl (Imodium) 2 mg PO PRN PRN PRN Reason: Diarrhea/Loose Stools Losartan Potassium (Cozaar) 100 mg PO DAILY [facility] Last Admin: 10/01/18 08:51 Dose: 100 mg Metformin HCl (Glucophage) 1,000 mg PO BID-[facility] Last Admin: 10/01/18 08:52 Dose: 1,000 mg Mineral Oil/White Petrolatum (Eucerin Cream) 0 gm TOP BIDPRN PRN PRN Reason: Dry Skin Nitroglycerin (Nitrostat) 0.4 mg SL Q5MIN PRN PRN Reason: Chest Pain Ondansetron HCl (Zofran Odt) 4 mg PO Q6H PRN PRN Reason: Nausea/Vomiting Ondansetron HCl (Zofran) 4 mg IVP Q6H PRN PRN Reason: Nausea/Vomiting Prednisone (Prednisone) 40 mg PO 1200 [facility] Stop: 10/05/18 12:01 Last Admin: 10/01/18 13:20 Dose: 40 mg Senna/Docusate Sodium (Senokot S) 2 tab PO BID PRN PRN Reason: Constipation Last Admin: 09/30/18 08:31 Dose: 2 tab Simvastatin (Zocor) 10 mg PO [facility] Last Admin: 09/30/18 21:33 Dose: 10 mg Sodium Chloride ([place] Nasal [place] 0.65%) 0 ml EA NARE QIDPRN PRN PRN Reason: Nasal Congestion Throat Lozenges (Cepastat Lozenges) 1 bibi PO Q2H PRN PRN Reason: Sore Throat
--- NOTE | 2018-10-01 16:33 | PDOC.PN ---
- Subjective Encounter Start Date: 09/30/18 Encounter Start Time: 11:15 Subjective: pt up in chair wants to go home - Objective Resuscitation Status - Order Detail: 09/30/18 12:31 Resuscitation Status Routine Resuscitation Status: FULL: Full Resuscitation Discussed with: per previous MD order Vital Signs & Weight: Vital Signs (12 hours) Temp Pulse Pulse Pulse Resp BP BP 10/01/18 13:54 69 18 10/01/18 12:32 70 70 123/58 L 143/69 H 10/01/18 11:36 98.3 F 75 18 10/01/18 08:00 98.8 F 78 18 10/01/18 07:07 10/01/18 07:06 70 16 BP Pulse Ox Pulse Ox Pulse Ox 10/01/18 13:54 10/01/18 12:32 95 95 10/01/18 11:36 130/61 95 10/01/18 08:00 95 10/01/18 07:07 93 L 10/01/18 07:06 93 L Weight Weight 207 lb I&O: 09/30/18 10/01/18 10/02/18 06:59 06:59 06:59 Intake Total 1200 780 Output Total 1250 Balance 1200 -470 Result Diagrams: 09/30/18 05:48 09/30/18 05:48 Additional Labs: Accuchecks 10/01/18 10/01/18 09/30/18 11:10 06:00 20:57 POC Glucose 181 H 158 H 322 H 09/30/18 16:46 POC Glucose 109 Phys Exam - Physical Examination Neck: no nodes, no JVD, supple, full ROM mild crackles to bases Cardiovascular: RRR, no significant murmur, no rub, gallop, irregular Gastrointestinal: soft, non-tender, no distention, positive bowel sounds Dx/Plan (1) Acute respiratory failure with hypoxia and hypercapnia Code(s): J96.01 - ACUTE RESPIRATORY FAILURE WITH HYPOXIA; J96.02 - ACUTE RESPIRATORY FAILURE WITH HYPERCAPNIA Status: Acute (2) Pulmonary hypertension Code(s): I27.20 - PULMONARY HYPERTENSION, UNSPECIFIED Status: Acute (3) Diabetes type 2, controlled Code(s): E11.9 - TYPE 2 DIABETES MELLITUS WITHOUT COMPLICATIONS Status: Chronic (4) Obesity (BMI 30-39.9) Code(s): E66.9 - OBESITY, UNSPECIFIED Status: Chronic (5) Iron deficiency anemia Code(s): D50.9 - IRON DEFICIENCY ANEMIA, UNSPECIFIED Status: Chronic - Plan pt received iv iron will add po iron -: will continue iv lasix for now -: will talk to cardiology for possible discharge * . Review of Systems - Review of Systems Respiratory: negative: Cough, Dry, Shortness of Breath, Hemoptysis, SOB with Excertion, Pleuritic Pain, Sputum, Wheezing Cardiovascular: negative: chest pain, palpitations, orthopnea, paroxysmal nocturnal dyspnea, edema, light headedness, other Gastrointestinal: negative: Nausea, Vomiting, Abdominal Pain, Diarrhea, Constipation, Melena, Hematochezia, Other Genitourinary: negative: Dysuria, Frequency, Incontinence, Hematuria, Retention , Other - Medications/Allergies Allergies/Adverse Reactions: Allergies Allergy/AdvReac Type Severity Reaction Status Date / Time levofloxacin [From Levaquin] Allergy Verified 09/27/18 18:14 Medications: Current Medications Acetaminophen (Tylenol) 650 mg PO Q4H PRN PRN Reason: Headache/Fever/Mild Pain (1-3) Last Admin: 09/29/18 08:54 Dose: 650 mg Albuterol/Ipratropium (Duoneb) 3 ml NEB [id number] [facility] Last Admin: 10/01/18 13:54 Dose: 3 ml Artificial Tears (Tears Renewed 15ml Bottle) 2 drop EA EYE PRN PRN PRN Reason: Dry Eyes Aspirin (Aspirin) 325 mg PO DAILY [facility] Last Admin: 10/01/18 08:51 Dose: 325 mg Bisacodyl (Dulcolax) 10 mg PO DAILYPRN PRN PRN Reason: Constipation Last Admin: 09/30/18 08:31 Dose: 10 mg Bisacodyl (Dulcolax) 10 mg [place] DAILYPRN PRN PRN Reason: Constipation Calcium Carbonate (Tums) 1,000 mg PO Q4H PRN PRN Reason: Heartburn or Indigestion Carvedilol (Coreg) 3.125 mg PO BID [facility] Last Admin: 10/01/18 08:52 Dose: 3.125 mg Dextrose/Water (Dextrose 50%) 25 gm SLOW IVP PRN PRN PRN Reason: Hypoglycemia Enoxaparin Sodium (Lovenox) 40 mg SC 0900 [facility] Last Admin: 10/01/18 08:50 Dose: 40 mg Famotidine (Pepcid) 20 mg PO BID [facility] Last Admin: 10/01/18 08:52 Dose: 20 mg Ferrous Sulfate (Feosol) 325 mg PO QAM-[facility] Last Admin: 10/01/18 08:52 Dose: 325 mg Ferrous Sulfate (Ferrous Sulfulte) 300 mg PO DAILY [facility] Furosemide (Lasix) 80 mg SLOW IVP 0600,1400 [facility] Gabapentin (Neurontin) 300 mg PO BID [facility] Last Admin: 10/01/18 08:52 Dose: 300 mg Glipizide (Glucotrol) 10 mg PO BID-[facility] Last Admin: 10/01/18 08:50 Dose: 10 mg Glucagon (Glucagon) 1 mg IM PRN PRN PRN Reason: Hypoglycemia Guaifenesin (Robitussin Sf) 200 mg PO Q4H PRN PRN Reason: Cough Hydralazine HCl (Apresoline) 10 mg SLOW IVP Q4H PRN PRN Reason: SBP > 180 and HR < 70 Dextrose/Water (D5w) 1,000 mls @ 0 mls/hr IV .Q0M PRN PRN Reason: Hypoglycemia Insulin Glargine 30 units/ (Miscellaneous Medication) 0.3 mls @ 0 mls/[facility] Last Admin: 10/01/18 08:45 Dose: 0.3 mls Insulin Glargine 22 units/ (Miscellaneous Medication) 0.22 mls @ 0 mls/hr SC QPM-[facility] Last Admin: 09/30/18 16:45 Dose: 0.22 mls Insulin Human Lispro (Humalog) 0 units SC .MODERATE SLIDING SC PRN PRN Reason: Moderate Correctional Scale Last Admin: 10/01/18 13:20 Dose: 2 unit Insulin Human Lispro (Humalog) 0 units SC .BEDTIME SLIDING SC PRN PRN Reason: Bedtime Correctional Scale Last Admin: 09/28/18 21:36 Dose: 2 unit Loperamide HCl (Imodium) 2 mg PO PRN PRN PRN Reason: Diarrhea/Loose Stools Losartan Potassium (Cozaar) 100 mg PO DAILY [facility] Last Admin: 10/01/18 08:51 Dose: 100 mg Metformin HCl (Glucophage) 1,000 mg PO BID-[facility] Last Admin: 10/01/18 08:52 Dose: 1,000 mg Mineral Oil/White Petrolatum (Eucerin Cream) 0 gm TOP BIDPRN PRN PRN Reason: Dry Skin Nitroglycerin (Nitrostat) 0.4 mg SL Q5MIN PRN PRN Reason: Chest Pain Ondansetron HCl (Zofran Odt) 4 mg PO Q6H PRN PRN Reason: Nausea/Vomiting Ondansetron HCl (Zofran) 4 mg IVP Q6H PRN PRN Reason: Nausea/Vomiting Prednisone (Prednisone) 40 mg PO 1200 [facility] Stop: 10/05/18 12:01 Last Admin: 10/01/18 13:20 Dose: 40 mg Senna/Docusate Sodium (Senokot S) 2 tab PO BID PRN PRN Reason: Constipation Last Admin: 09/30/18 08:31 Dose: 2 tab Simvastatin (Zocor) 10 mg PO HS [facility] Last Admin: 09/30/18 21:33 Dose: 10 mg Sodium Chloride ([place] Nasal [place] 0.65%) 0 ml EA NARE QIDPRN PRN PRN Reason: Nasal Congestion Throat Lozenges (Cepastat Lozenges) 1 bibi PO Q2H PRN PRN Reason: Sore Throat
[2018-10-01] MEDS: Insulin Glargine 22 UNITS in Pre-Filled Syringe 1 EACH SC SCH (17:18)
[2018-10-01] MEDS: Simvastatin 5 MG TAB PO SCH (22:15)
[2018-10-02] MEDS: Furosemide 40 MG/4 ML VIAL SLOW IVP SCH ×2 (07:02→13:46)
[2018-10-02 09:30] LABS: BUN (Urea Nitrogen) 19 mg/dL (9.8-20.1); Calc. Creatinine Clearance 132 mL/min (70-130); Calcium 9.7 mg/dL (7.8-10.44); Estimated GFR-MDRD 90; Glucose 186 mg/dL (70-105)
[2018-10-02 09:39] LABS: Anion Gap 15 mmol/L (10-20); Carbon Dioxide 38 mmol/L (22-29); Chloride 94 mmol/L (98-107); Potassium 3.7 mmol/L (3.5-5.1); Sodium 143 mmol/L (136-145)
[2018-10-02] MEDS: Insulin Glargine 30 UNITS in Pre-Filled Syringe 1 EACH SC SCH (10:15)
[2018-10-02] MEDS: Gabapentin 300 MG CAP PO SCH ×2 (10:16→21:16)
[2018-10-02] MEDS: Ferrous Sulfate 325 MG TAB PO SCH (10:16)
[2018-10-02] MEDS: metFORMIN 500 MG TAB PO SCH ×2 (10:16→17:58)
[2018-10-02] MEDS: Famotidine 20 MG TAB PO SCH ×2 (10:16→21:16)
[2018-10-02] MEDS: Carvedilol 3.125 MG TAB PO SCH ×2 (10:17→21:16)
[2018-10-02] MEDS: glipiZIDE 5 MG TAB PO SCH ×2 (10:17→17:58)
[2018-10-02] MEDS: Aspirin 325 MG TAB PO SCH (10:17)
[2018-10-02] MEDS: Losartan 25 MG TAB PO SCH (10:17)
[2018-10-02] MEDS: Enoxaparin Sodium 40 MG/0.4 ML SYRINGE SC SCH (10:18)
[2018-10-02 13:45] VITALS: BMI 38.9
[2018-10-02] MEDS: predniSONE 20 MG TAB PO SCH (13:46)
--- NOTE | 2018-10-02 13:56 | PDOC.PN ---
- Subjective Encounter Start Date: 10/02/18 Encounter Start Time: 11:15 Subjective: pt up in bed eating - Objective Resuscitation Status - Order Detail: 09/30/18 12:31 Resuscitation Status Routine Resuscitation Status: FULL: Full Resuscitation Discussed with: per previous MD order Vital Signs & Weight: Vital Signs (12 hours) Temp Pulse Resp BP BP Pulse Ox 10/02/18 12:33 80 20 10/02/18 10:09 98.2 F 77 18 122/59 L 91 L 10/02/18 07:19 96 10/02/18 07:17 76 16 96 10/02/18 04:00 97.6 F 83 18 166/71 H 92 L Weight Weight 199 lb 1.6 oz I&O: 10/01/18 10/02/18 10/03/18 06:59 06:59 06:59 Intake Total 780 390 Output Total 1250 350 Balance -470 40 Result Diagrams: 09/30/18 05:48 10/02/18 08:53 Additional Labs: Accuchecks 10/02/18 10/02/18 10/01/18 11:14 05:47 20:48 POC Glucose 256 H 244 H 433 H 10/01/18 16:56 POC Glucose 145 H Phys Exam - Physical Examination Neck: no nodes, no JVD, supple, full ROM mild crackles to bases Cardiovascular: RRR, no significant murmur, no rub, gallop, irregular Gastrointestinal: soft, non-tender, no distention, positive bowel sounds Musculoskeletal: edema present Dx/Plan (1) Acute respiratory failure with hypoxia and hypercapnia Code(s): J96.01 - ACUTE RESPIRATORY FAILURE WITH HYPOXIA; J96.02 - ACUTE RESPIRATORY FAILURE WITH HYPERCAPNIA Status: Acute (2) Pulmonary hypertension Code(s): I27.20 - PULMONARY HYPERTENSION, UNSPECIFIED Status: Acute (3) Diabetes type 2, controlled Code(s): E11.9 - TYPE 2 DIABETES MELLITUS WITHOUT COMPLICATIONS Status: Chronic (4) Obesity (BMI 30-39.9) Code(s): E66.9 - OBESITY, UNSPECIFIED Status: Chronic (5) Iron deficiency anemia Code(s): D50.9 - IRON DEFICIENCY ANEMIA, UNSPECIFIED Status: Chronic - Plan pt educated about low salt food. pt has been eating home food -: not sure if this has significant salt in it. I have advised daughter and pt -: the importance of salt and water. will continue current tx -: possible discharge in 24-48 h * . Review of Systems - Review of Systems Respiratory: negative: Cough, Dry, Shortness of Breath, Hemoptysis, SOB with Excertion, Pleuritic Pain, Sputum, Wheezing Cardiovascular: negative: chest pain, palpitations, orthopnea, paroxysmal nocturnal dyspnea, edema, light headedness, other Gastrointestinal: negative: Nausea, Vomiting, Abdominal Pain, Diarrhea, Constipation, Melena, Hematochezia, Other - Medications/Allergies Allergies/Adverse Reactions: Allergies Allergy/AdvReac Type Severity Reaction Status Date / Time levofloxacin [From Levaquin] Allergy Verified 09/27/18 18:14 Medications: Current Medications Acetaminophen (Tylenol) 650 mg PO Q4H PRN PRN Reason: Headache/Fever/Mild Pain (1-3) Last Admin: 09/29/18 08:54 Dose: 650 mg Albuterol/Ipratropium (Duoneb) 3 ml NEB [id number] [facility] Last Admin: 10/02/18 12:33 Dose: 3 ml Artificial Tears (Tears Renewed 15ml Bottle) 2 drop EA EYE PRN PRN PRN Reason: Dry Eyes Aspirin (Aspirin) 325 mg PO DAILY [facility] Last Admin: 10/02/18 10:17 Dose: 325 mg Bisacodyl (Dulcolax) 10 mg PO DAILYPRN PRN PRN Reason: Constipation Last Admin: 09/30/18 08:31 Dose: 10 mg Bisacodyl (Dulcolax) 10 mg [place] DAILYPRN PRN PRN Reason: Constipation Calcium Carbonate (Tums) 1,000 mg PO Q4H PRN PRN Reason: Heartburn or Indigestion Carvedilol (Coreg) 3.125 mg PO BID [facility] Last Admin: 10/02/18 10:17 Dose: 3.125 mg Dextrose/Water (Dextrose 50%) 25 gm SLOW IVP PRN PRN PRN Reason: Hypoglycemia Enoxaparin Sodium (Lovenox) 40 mg SC 0900 [facility] Last Admin: 10/02/18 10:18 Dose: 40 mg Famotidine (Pepcid) 20 mg PO BID [facility] Last Admin: 10/02/18 10:16 Dose: 20 mg Ferrous Sulfate (Feosol) 325 mg PO QA-[facility] Last Admin: 10/02/18 10:16 Dose: 325 mg Furosemide (Lasix) 80 mg SLOW IVP 0600,1400 [facility] Last Admin: 10/02/18 13:46 Dose: 80 mg Gabapentin (Neurontin) 300 mg PO BID [facility] Last Admin: 10/02/18 10:16 Dose: 300 mg Glipizide (Glucotrol) 10 mg PO BID-[facility] Last Admin: 10/02/18 10:17 Dose: 10 mg Glucagon (Glucagon) 1 mg IM PRN PRN PRN Reason: Hypoglycemia Guaifenesin (Robitussin Sf) 200 mg PO Q4H PRN PRN Reason: Cough Hydralazine HCl (Apresoline) 10 mg SLOW IVP Q4H PRN PRN Reason: SBP > 180 and HR < 70 Dextrose/Water (D5w) 1,000 mls @ 0 mls/hr IV .Q0M PRN PRN Reason: Hypoglycemia Insulin Glargine 30 units/ (Miscellaneous Medication) 0.3 mls @ 0 mls/hr [place] [facility] [place] Last Admin: 10/02/18 10:15 Dose: 0.3 mls Insulin Glargine 22 units/ (Miscellaneous Medication) 0.22 mls @ 0 mls/hr SC QPM-[facility] Last Admin: 10/01/18 17:18 Dose: 0.22 mls Insulin Human Lispro (Humalog) 0 units SC .MODERATE SLIDING SC PRN PRN Reason: Moderate Correctional Scale Last Admin: 10/01/18 13:20 Dose: 2 unit Insulin Human Lispro (Humalog) 0 units SC .BEDTIME SLIDING SC PRN PRN Reason: Bedtime Correctional Scale Last Admin: 10/01/18 22:15 Dose: 5 unit Loperamide HCl (Imodium) 2 mg PO PRN PRN PRN Reason: Diarrhea/Loose Stools Losartan Potassium (Cozaar) 100 mg PO DAILY [facility] Last Admin: 10/02/18 10:17 Dose: 100 mg Metformin HCl (Glucophage) 1,000 mg PO BID-[facility] Last Admin: 10/02/18 10:16 Dose: 1,000 mg Mineral Oil/White Petrolatum (Eucerin Cream) 0 gm TOP BIDPRN PRN PRN Reason: Dry Skin Nitroglycerin (Nitrostat) 0.4 mg SL Q5MIN PRN PRN Reason: Chest Pain Ondansetron HCl (Zofran Odt) 4 mg PO Q6H PRN PRN Reason: Nausea/Vomiting Ondansetron HCl (Zofran) 4 mg IVP Q6H PRN PRN Reason: Nausea/Vomiting Prednisone (Prednisone) 40 mg PO 1200 [facility] Stop: 10/05/18 12:01 Last Admin: 10/02/18 13:46 Dose: 40 mg Senna/Docusate Sodium (Senokot S) 2 tab PO BID PRN PRN Reason: Constipation Last Admin: 09/30/18 08:31 Dose: 2 tab Simvastatin (Zocor) 10 mg PO HS [facility] Last Admin: 10/01/18 22:15 Dose: 10 mg Sodium Chloride ([place] Nasal [place] 0.65%) 0 ml EA NARE QIDPRN PRN PRN Reason: Nasal Congestion Throat Lozenges (Cepastat Lozenges) 1 bibi PO Q2H PRN PRN Reason: Sore Throat
[2018-10-02] MEDS: Insulin Glargine 22 UNITS in Pre-Filled Syringe 1 EACH SC SCH (17:59)
--- NOTE | 2018-10-02 18:23 | PDOC.CTH ---
Cardiology Progress Note - Subjective She is doing better. - Objective Vital Signs Temp Pulse Pulse Pulse Resp BP BP 10/02/18 12:33 80 20 10/02/18 11:15 70 72 162/76 H 143/70 H 10/02/18 10:09 98.2 F 77 18 10/02/18 07:19 10/02/18 07:17 76 16 BP Pulse Ox Pulse Ox Pulse Ox 10/02/18 12:33 10/02/18 11:15 95 92 L 10/02/18 10:09 122/59 L 91 L 10/02/18 07:19 96 10/02/18 07:17 96 Weight 199 lb 1.6 oz 10/01/18 10/02/18 10/03/18 06:59 06:59 06:59 Intake Total 780 390 Output Total 1250 350 Balance -470 40 - Physical Examination General/Neuro: alert & oriented x3, NAD Neck: no JVD present Lungs: CTA, unlabored respirations Heart: RRR Abdomen: NT/ND Extremities: + edema B (1+) - Telemetry Telemetry Rhythm: NSR - Labs Result Diagrams: 09/30/18 05:48 10/02/18 08:53 Troponin/CKMB CK-MB (CK-2) 2.0 ng/mL (0-6.6) 09/27/18 12:14 Troponin I 0.031 ng/mL (< 0.028) H 09/27/18 18:59 - Assessment/Plan 1. Acute on chronic diastolic CHF 2. HTN 3. Obesity 4. Likely sleep apnea. PLAN: - LE edema improved with increased Lasix. - Continue at 80 mg IV BID for now.
[2018-10-02] MEDS: Simvastatin 5 MG TAB PO SCH (21:16)
[2018-10-02] MEDS: HumaLOG 300 UNITS/3 ML VIAL SC PRN (21:23)
[2018-10-03] MEDS: Furosemide 40 MG/4 ML VIAL SLOW IVP SCH ×2 (06:08→13:52)
[2018-10-03] MEDS: Aspirin 325 MG TAB PO SCH (09:32)
[2018-10-03] MEDS: metFORMIN 500 MG TAB PO SCH ×2 (09:32→18:20)
[2018-10-03] MEDS: glipiZIDE 5 MG TAB PO SCH ×2 (09:32→18:21)
[2018-10-03] MEDS: Ferrous Sulfate 325 MG TAB PO SCH (09:32)
[2018-10-03] MEDS: Insulin Glargine 30 UNITS in Pre-Filled Syringe 1 EACH SC SCH (09:33)
[2018-10-03] MEDS: Carvedilol 3.125 MG TAB PO SCH ×2 (09:33→21:43)
[2018-10-03] MEDS: Famotidine 20 MG TAB PO SCH ×2 (09:34→21:43)
[2018-10-03] MEDS: Enoxaparin Sodium 40 MG/0.4 ML SYRINGE SC SCH (09:34)
[2018-10-03] MEDS: Gabapentin 300 MG CAP PO SCH ×2 (09:34→21:43)
[2018-10-03] MEDS: Losartan 25 MG TAB PO SCH (09:38)
[2018-10-03 10:12] LABS: #Eosinphils 0.1 thou/uL (0.0-0.7); #Lymphocytes 1.7 thou/uL (1.20-3.40); #Monocytes 0.6 thou/uL (0.11-0.59); #Neutrophils 7.7 thou/uL (1.40-6.50); %Basophils 0.1 % (0.0-1.0); %Eosinophils 0.6 % (0.0-10.0); %Lymphocytes 16.6 % (21.0-51.0); %Monocytes 5.9 % (0.0-10.0); %Neutrophils 76.8 % (42.0-75.0); Hemoglobin 12.1 g/dL (12.0-16.0); Mean Corpuscular HGB CONC 28.9 g/dL (32.0-36.0); Mean Corpuscular Hemoglobin 22.6 pg (27.0-31.0); Mean Corpuscular Volume 78.2 fL (78.0-98.0); Mean Platelet Volume 10.4 fL (7.4-10.4); Platelet Count 186 thou/uL (130-400); RBC Distribution Width 18.2 % (11.5-14.5); Red Blood Cell (RBC) Count 5.37 mill/uL (4.20-5.40)
[2018-10-03 10:27] LABS: BUN (Urea Nitrogen) 22 mg/dL (9.8-20.1); Calc. Creatinine Clearance 133 mL/min (70-130); Calcium 10.1 mg/dL (7.8-10.44); Estimated GFR-MDRD Greater than 90; Glucose 87 mg/dL (70-105)
[2018-10-03 10:35] LABS: Anion Gap 18 mmol/L (10-20); Chloride 90 mmol/L (98-107); Potassium 3.8 mmol/L (3.5-5.1); Sodium 145 mmol/L (136-145)
[2018-10-03 10:53] LABS: Carbon Dioxide 41 mmol/L (22-29)
[2018-10-03] MEDS: predniSONE 20 MG TAB PO SCH (12:19)
--- NOTE | 2018-10-03 16:06 | PDOC.CTH ---
Cardiology Progress Note - Subjective Continues to need oxygen supplementation. Drops to the 80's off NC. She states she has continued to diurese much better than before. Her Cr is unchanged and actually better. - Objective Vital Signs Temp Pulse Resp BP BP Pulse Ox 10/03/18 13:44 71 16 92 L 10/03/18 12:12 97.8 F 75 18 106/73 91 L 10/03/18 08:00 96 10/03/18 07:15 97.8 F 64 18 133/68 95 10/03/18 07:08 85 16 96 Weight 199 lb 7 oz 10/02/18 10/03/18 10/04/18 06:59 06:59 06:59 Intake Total 390 720 Output Total 350 600 Balance 40 120 - Physical Examination General/Neuro: alert & oriented x3, NAD Neck: no JVD present Lungs: CTA, unlabored respirations Heart: RRR Abdomen: NT/ND Extremities: + edema B (1+) - Telemetry Telemetry Rhythm: NSR - Labs Result Diagrams: 10/03/18 09:54 10/03/18 09:54 Troponin/CKMB CK-MB (CK-2) 2.0 ng/mL (0-6.6) 09/27/18 12:14 Troponin I 0.031 ng/mL (< 0.028) H 09/27/18 18:59 - Assessment/Plan 1. Acute on chronic diastolic CHF 2. HTN 3. Obesity 4. Likely sleep apnea. PLAN: - LE edema improved with increased Lasix. - Continue at 80 mg IV BID for now. - Home once off O2. May need home O2 if unable to wean.
--- NOTE | 2018-10-03 17:12 | PDOC.PN ---
- Subjective Encounter Start Date: 10/03/18 Encounter Start Time: 10:00 Subjective: pt up in bed no complains - Objective Resuscitation Status - Order Detail: 09/30/18 12:31 Resuscitation Status Routine Resuscitation Status: FULL: Full Resuscitation Discussed with: per previous MD order Vital Signs & Weight: Vital Signs (12 hours) Temp Pulse Resp BP BP Pulse Ox 10/03/18 13:44 71 16 92 L 10/03/18 12:12 97.8 F 75 18 106/73 91 L 10/03/18 08:00 96 10/03/18 07:15 97.8 F 64 18 133/68 95 10/03/18 07:08 85 16 96 Weight Weight 199 lb 7 oz I&O: 10/02/18 10/03/18 10/04/18 06:59 06:59 06:59 Intake Total 390 720 Output Total 350 600 Balance 40 120 Result Diagrams: 10/03/18 09:54 10/03/18 09:54 Additional Labs: Accuchecks 10/03/18 10/03/18 10/03/18 12:05 11:24 05:32 POC Glucose 79 64 L 180 H 10/02/18 10/02/18 21:01 17:51 POC Glucose 243 H 127 H Phys Exam - Physical Examination Neck: no nodes, no JVD, supple, full ROM Respiratory: no wheezing, no rales, no rhonchi, wheezing present, clear to auscultation bilateral Cardiovascular: RRR, no significant murmur, no rub, gallop, irregular Gastrointestinal: soft, non-tender, no distention, positive bowel sounds Musculoskeletal: no edema, pulses present, edema present Dx/Plan (1) Acute respiratory failure with hypoxia and hypercapnia Code(s): J96.01 - ACUTE RESPIRATORY FAILURE WITH HYPOXIA; J96.02 - ACUTE RESPIRATORY FAILURE WITH HYPERCAPNIA Status: Acute (2) Pulmonary hypertension Code(s): I27.20 - PULMONARY HYPERTENSION, UNSPECIFIED Status: Acute (3) Diabetes type 2, controlled Code(s): E11.9 - TYPE 2 DIABETES MELLITUS WITHOUT COMPLICATIONS Status: Chronic (4) Obesity (BMI 30-39.9) Code(s): E66.9 - OBESITY, UNSPECIFIED Status: Chronic (5) Iron deficiency anemia Code(s): D50.9 - IRON DEFICIENCY ANEMIA, UNSPECIFIED Status: Chronic - Plan pt most likely will need oxygen on discharge -: she desaturates when she gets sleeps -: she will need sleep study outpatient -: due to contraction alkalosis will decrease her lasix -: Educated on low salt diet/weight loss * . Review of Systems - Review of Systems Respiratory: negative: Cough, Dry, Shortness of Breath, Hemoptysis, SOB with Excertion, Pleuritic Pain, Sputum, Wheezing Cardiovascular: negative: chest pain, palpitations, orthopnea, paroxysmal nocturnal dyspnea, edema, light headedness, other Gastrointestinal: negative: Nausea, Vomiting, Abdominal Pain, Diarrhea, Constipation, Melena, Hematochezia, Other Genitourinary: negative: Dysuria, Frequency, Incontinence, Hematuria, Retention , Other - Medications/Allergies Allergies/Adverse Reactions: Allergies Allergy/AdvReac Type Severity Reaction Status Date / Time levofloxacin [From Levaquin] Allergy Verified 09/27/18 18:14 Medications: Current Medications Acetaminophen (Tylenol) 650 mg PO Q4H PRN PRN Reason: Headache/Fever/Mild Pain (1-3) Last Admin: 09/29/18 08:54 Dose: 650 mg Albuterol/Ipratropium (Duoneb) 3 ml NEB [id number] [facility] Last Admin: 10/03/18 13:44 Dose: 3 ml Artificial Tears (Tears Renewed 15ml Bottle) 2 drop EA EYE PRN PRN PRN Reason: Dry Eyes Aspirin (Aspirin) 325 mg PO DAILY [facility] Last Admin: 10/03/18 09:32 Dose: 325 mg Bisacodyl (Dulcolax) 10 mg PO DAILYPRN PRN PRN Reason: Constipation Last Admin: 09/30/18 08:31 Dose: 10 mg Bisacodyl (Dulcolax) 10 mg [place] DAILYPRN PRN PRN Reason: Constipation Calcium Carbonate (Tums) 1,000 mg PO Q4H PRN PRN Reason: Heartburn or Indigestion Carvedilol (Coreg) 3.125 mg PO BID [facility] Last Admin: 10/03/18 09:33 Dose: 3.125 mg Dextrose/Water (Dextrose 50%) 25 gm SLOW IVP PRN PRN PRN Reason: Hypoglycemia Enoxaparin Sodium (Lovenox) 40 mg SC 0900 [facility] Last Admin: 10/03/18 09:34 Dose: 40 mg Famotidine (Pepcid) 20 mg PO BID [facility] Last Admin: 10/03/18 09:34 Dose: 20 mg Ferrous Sulfate (Feosol) 325 mg PO QA-[facility] Last Admin: 10/03/18 09:32 Dose: 325 mg Furosemide (Lasix) 60 mg SLOW IVP DAILY [facility] Gabapentin (Neurontin) 300 mg PO BID [facility] Last Admin: 10/03/18 09:34 Dose: 300 mg Glipizide (Glucotrol) 10 mg PO BID-[facility] Last Admin: 10/03/18 09:32 Dose: 10 mg Glucagon (Glucagon) 1 mg IM PRN PRN PRN Reason: Hypoglycemia Guaifenesin (Robitussin Sf) 200 mg PO Q4H PRN PRN Reason: Cough Hydralazine HCl (Apresoline) 10 mg SLOW IVP Q4H PRN PRN Reason: SBP > 180 and HR < 70 Dextrose/Water (D5w) 1,000 mls @ 0 mls/hr IV .Q0M PRN PRN Reason: Hypoglycemia Insulin Glargine 30 units/ (Miscellaneous Medication) 0.3 mls @ 0 mls/hr [facility] [place] [facility] [place] Last Admin: 10/03/18 09:33 Dose: 0.3 mls Insulin Glargine 22 units/ (Miscellaneous Medication) 0.22 mls @ 0 mls/hr SC Q-[facility] Last Admin: 10/02/18 17:59 Dose: 0.22 mls Insulin Human Lispro (Humalog) 0 units SC .MODERATE SLIDING SC PRN PRN Reason: Moderate Correctional Scale Last Admin: 10/01/18 13:20 Dose: 2 unit Insulin Human Lispro (Humalog) 0 units SC .BEDTIME SLIDING SC PRN PRN Reason: Bedtime Correctional Scale Last Admin: 10/02/18 21:23 Dose: 2 unit Loperamide HCl (Imodium) 2 mg PO PRN PRN PRN Reason: Diarrhea/Loose Stools Losartan Potassium (Cozaar) 100 mg PO DAILY [facility] Last Admin: 10/03/18 09:38 Dose: 100 mg Metformin HCl (Glucophage) 1,000 mg PO BID-[facility] Last Admin: 10/03/18 09:32 Dose: 1,000 mg Mineral Oil/White Petrolatum (Eucerin Cream) 0 gm TOP BIDPRN PRN PRN Reason: Dry Skin Nitroglycerin (Nitrostat) 0.4 mg SL Q5MIN PRN PRN Reason: Chest Pain Ondansetron HCl (Zofran Odt) 4 mg PO Q6H PRN PRN Reason: Nausea/Vomiting Ondansetron HCl (Zofran) 4 mg IVP Q6H PRN PRN Reason: Nausea/Vomiting Prednisone (Prednisone) 40 mg PO 1200 [facility] Stop: 10/05/18 12:01 Last Admin: 10/03/18 12:19 Dose: 40 mg Senna/Docusate Sodium (Senokot S) 2 tab PO BID PRN PRN Reason: Constipation Last Admin: 09/30/18 08:31 Dose: 2 tab Simvastatin (Zocor) 10 mg PO HS [facility] Last Admin: 10/02/18 21:16 Dose: 10 mg Sodium Chloride ([place] Nasal [place] 0.65%) 0 ml EA NARE QIDPRN PRN PRN Reason: Nasal Congestion Throat Lozenges (Cepastat Lozenges) 1 bibi PO Q2H PRN PRN Reason: Sore Throat
[2018-10-03] MEDS: Insulin Glargine 22 UNITS in Pre-Filled Syringe 1 EACH SC SCH (18:22)
[2018-10-03] MEDS ORDERED: Insulin Glargine 22 UNITS in Pre-Filled Syringe 1 EACH SC SCH (21:30)
[2018-10-03] MEDS: HumaLOG 300 UNITS/3 ML VIAL SC PRN (21:42)
[2018-10-03] MEDS: Simvastatin 5 MG TAB PO SCH (21:43)
[2018-10-04 06:31] LABS: BUN (Urea Nitrogen) 26 mg/dL (9.8-20.1); Calc. Creatinine Clearance 144 mL/min (70-130); Calcium 10.2 mg/dL (7.8-10.44); Estimated GFR-MDRD Greater than 90; Glucose 129 mg/dL (70-105)
[2018-10-04 06:40] LABS: Anion Gap 13 mmol/L (10-20); Chloride 94 mmol/L (98-107); Potassium 3.9 mmol/L (3.5-5.1); Sodium 145 mmol/L (136-145)
[2018-10-04 06:43] LABS: Carbon Dioxide 42 mmol/L (22-29)
[2018-10-04] MEDS ORDERED: Furosemide 40 MG/4 ML VIAL SLOW IVP SCH (09:00)
[2018-10-04] MEDS: metFORMIN 500 MG TAB PO SCH ×2 (09:59→18:19)
[2018-10-04] MEDS: Aspirin 325 MG TAB PO SCH (09:59)
[2018-10-04] MEDS: Ferrous Sulfate 325 MG TAB PO SCH (10:00)
[2018-10-04] MEDS: glipiZIDE 5 MG TAB PO SCH ×2 (10:00→18:20)
[2018-10-04] MEDS: Gabapentin 300 MG CAP PO SCH ×2 (10:01→20:44)
[2018-10-04] MEDS: Carvedilol 3.125 MG TAB PO SCH ×2 (10:01→20:44)
[2018-10-04] MEDS: Famotidine 20 MG TAB PO SCH ×2 (10:01→20:44)
[2018-10-04] MEDS: Enoxaparin Sodium 40 MG/0.4 ML SYRINGE SC SCH (10:13)
[2018-10-04] MEDS: Insulin Glargine 30 UNITS in Pre-Filled Syringe 1 EACH SC SCH (10:18)
[2018-10-04] MEDS: Losartan 25 MG TAB PO SCH (10:28)
[2018-10-04] MEDS: predniSONE 20 MG TAB PO SCH (14:48)
--- NOTE | 2018-10-04 16:46 | PRG ---
DATE OF SERVICE: 10/04/2018 SUBJECTIVE: The patient was seen and examined at the bedside. She is doing quite well, although she is still short of breath . OBJECTIVE: VITAL SIGNS: Blood pressure is 130/60, pulse is 68, temperature is 98.4, respiratory rate is 19, and O2 saturation is 93% on 3 L by nasal cannula. HEENT: Head is atraumatic and normocephalic. Eyes are PERRLA. Sclerae are nonicteric. Oral mucosa is moist. NECK: Supple. LUNGS: Breath sounds at the bases diminished. HEART: S1 and S2 normal. No S3. No S4. No any murmur. ABDOMEN: Soft, nontender, obese. EXTREMITIES: 1+ peripheral edema . NEUROLOGIC: She is alert and oriented x4. There is no any motor or sensory deficits. Cranial nerves are intact. LABORATORY DATA: Labs showed sodium of 145, potassium 3.9, chloride 94, CO2 42, creatinine 0.59, BUN 26, glucose is ranging from 79 to 356. IMPRESSION: 1. Acute respiratory failure with hypoxia and hypercapnia. 2. Pulmonary hypertension. 3. Diabetes mellitus type 2. 4. Obesity. 5. Iron deficiency anemia. PLAN: The patient is improving, but she still needs O2. She requires 3 L at this point, as she failed de-sat status. She saturates at rest 86%. Will obtain the oxygen to use at home and then she will able to go home. For now, we will continue the same regimen. Job ID: [id number]
[2018-10-04] MEDS: Insulin Glargine 22 UNITS in Pre-Filled Syringe 1 EACH SC SCH (18:21)
[2018-10-04] MEDS: Simvastatin 5 MG TAB PO SCH (20:44)
[2018-10-04] MEDS: HumaLOG 300 UNITS/3 ML VIAL SC PRN (20:44)
[2018-10-05] MEDS ORDERED: Furosemide 40 MG/4 ML VIAL SLOW IVP SCH (06:00)
[2018-10-05] MEDS: Losartan 25 MG TAB PO SCH (08:25)
[2018-10-05] MEDS: Carvedilol 3.125 MG TAB PO SCH (08:26)
[2018-10-05] MEDS: Gabapentin 300 MG CAP PO SCH (08:26)
[2018-10-05] MEDS: Aspirin 325 MG TAB PO SCH (08:26)
[2018-10-05] MEDS: glipiZIDE 5 MG TAB PO SCH ×2 (08:26→16:14)
[2018-10-05] MEDS: metFORMIN 500 MG TAB PO SCH ×2 (08:26→16:14)
[2018-10-05] MEDS: Ferrous Sulfate 325 MG TAB PO SCH (08:26)
[2018-10-05] MEDS: Enoxaparin Sodium 40 MG/0.4 ML SYRINGE SC SCH (08:26)
[2018-10-05] MEDS: Famotidine 20 MG TAB PO SCH (08:26)
[2018-10-05] MEDS: Insulin Glargine 30 UNITS in Pre-Filled Syringe 1 EACH SC SCH (08:27)
[2018-10-05 11:20] VITALS: TEMP 98.1
[2018-10-05] MEDS: predniSONE 20 MG TAB PO SCH (12:55)
[2018-10-05 15:10] VITALS: BP 133/70
[2018-10-05] MEDS: Insulin Glargine 22 UNITS in Pre-Filled Syringe 1 EACH SC SCH (16:14)
--- NOTE | 2018-10-06 07:51 | DIS ---
DATE OF ADMISSION: 09/27/2018 DATE OF DISCHARGE: 10/05/2018 FINAL DIAGNOSES AT THE TIME OF DISCHARGE: 1. Acute respiratory failure with hypoxia and hypercapnia. 2. Congestive heart failure, systolic and diastolic. 3. Pulmonary hypertension. 4. Diabetes mellitus type 2. 5. Obesity. 6. Iron deficiency anemia. CONSULTANTS: Dr. Santos Canales, Cardiology Service and Dr. Rivera, Cardiology Service. HOSPITAL COURSE: The patient is a 58-year-old female, who presented to the emergency room with history of shortness of breath for approximately 1 to 2 months, which was gradually getting worse. She was able only to walk about 10 steps because she was getting out of breath. She noticed bilateral lower extremity pitting edema and cough with some clear sputum. She did give a history of classic orthopnea and PND. She denied any palpitational syncope. She was also fatigued and she also gained a significant amount of weight for the last month prior to this hospitalization. She denied any flu-like illness. No chills. No fever. She changed her primary care physician recently. Apparently, her oxygenation was down to 86% on room air when she was in the emergency room evaluated. CT angiogram was done in the emergency room and it came back negative for PE, but there was pulmonary hypertension found. At the time of evaluation, her BMP showed sodium of 137, potassium 3.9, chloride 93, CO2 23, BUN 17, creatinine 0.71, glucose 306, calcium 9.3. Lactic acid 1.8. CK was 40. CK-MB 2.0. Troponin I 0.014. BNP was 441.4. Lactic acid was 1.8. She was admitted to the hospital for IV diuretics and further management. She was seen by Dr. Canales for Cardiology evaluation. Also she was seen by Dr. Rivera originally for consultation, who recommended to use CPAP and he agreed with continuation of current regimen gradually and she got diuresed and she started feeling better. Her echocardiogram came back with LVEF of 50% to 55% and grade 1/3 and diastolic dysfunction with mild concentric left ventricular hypertrophy, small pericardial effusion without tamponade. Gradually, we were able to wean her off oxygen and she is saturating well on room air. Her blood pressure is 122/73, temperature is 98.1, pulse is 61, respiratory rate is 15, O2 saturation is 98% on room air. She was discharged home with recommendation to stay on heart-healthy low salt diet. ACTIVITIES: As tolerated. DISCHARGE MEDICATIONS: Her medications at the time of discharge: 1. Aspirin 325 mg once a day. 2. Carvedilol 3.125 mg twice a day. 3. Ferrous sulfate 325 mg once a day. 4. Furosemide 40 mg once a day. 5. Glipizide 10 mg twice a day. 6. Insulin glargine 30 units every morning and 22 units in the evening. 7. Losartan 100 mg once a day. 8. Metformin 1000 mg twice a day. 9. Pravastatin 20 mg at bedtime. She is going to follow up with her primary care physician in [address] 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 Discharge time spent is more than 30 minutes and the patient was seen and examined before she was discharged. Job ID: [id number]
== END 2018-10-05 16:50 | disposition home or self-care (01) | DRG 291 ==
LOC: ERS 11:39 → 2NO 14:18
PROVIDERS: ADMIT Internal Medicine; ATTEND Internal Medicine
DX: I11.0 Hypertensive heart disease with heart failure (principal); J96.02 Acute respiratory failure with hypercapnia; J96.01 Acute respiratory failure with hypoxia; I24.8 Other forms of acute ischemic heart disease; I27.20 Pulmonary hypertension, unspecified; E66.01 Morbid (severe) obesity due to excess calories; E78.5 Hyperlipidemia, unspecified; E11.9 Type 2 diabetes mellitus without complications; Z79.899 Other long term (current) drug therapy; Z79.84 Long term (current) use of oral hypoglycemic drugs; E11.40 Type 2 diabetes mellitus with diabetic neuropathy, unspecified; D50.9 Iron deficiency anemia, unspecified; I50.43 Acute on chronic combined systolic (congestive) and diastolic (congestive) heart failure; G47.33 Obstructive sleep apnea (adult) (pediatric); Z68.38 Body mass index [BMI] 38.0-38.9, adult
CPT/HCPCS: 36415; 36416; 71045; 71275; 80048; 80053; 80061; 81003; 82274; 82550; 82553; 82728; 82805; 83605; 83690; 83735; 83880; 84443; 84484; 84550; 85025; 85379; 87040; 87804; 93005; 93306; 93798; 94640; 94760; 96361; 96365; 96375; J1650; J1940; J1956; J2916; J7050; J7506; J7620

== ENCOUNTER 2019-03-02 10:29 | Inpatient (IN) | payer SELFPAY ==
[2019-03-02 11:09] LABS: Hemoglobin 12.7 g/dL (12.0-16.0); Mean Corpuscular Hemoglobin 26.8 pg (27.0-31.0); Mean Corpuscular Volume 89.3 fL (78.0-98.0); Mean Platelet Volume 9.5 fL (7.4-10.4); Platelet Count 214 thou/uL (130-400); RBC Distribution Width 13.9 % (11.5-14.5); Red Blood Cell (RBC) Count 4.73 mill/uL (4.20-5.40); White Blood Cell (WBC) Count 7.5 thou/uL (4.8-10.8)
[2019-03-02 11:10] LABS: #Eosinphils 0.1 thou/uL (0.0-0.7); #Lymphocytes 1.6 thou/uL (1.20-3.40); #Monocytes 0.5 thou/uL (0.11-0.59); #Neutrophils 5.3 thou/uL (1.40-6.50); %Basophils 0.6 % (0.0-1.0); %Eosinophils 1.2 % (0.0-10.0); %Lymphocytes 21.3 % (21.0-51.0); %Monocytes 6.2 % (0.0-10.0); %Neutrophils 70.6 % (42.0-75.0)
[2019-03-02 11:34] LABS: ALT (SGPT) 25 U/L (8-55); AST (SGOT) 18 U/L (5-34); Albumin 3.6 g/dL (3.5-5.0); Alkaline Phosphatase 88 U/L (40-150); Anion Gap 7 mmol/L (10-20); BUN (Urea Nitrogen) 11 mg/dL (9.8-20.1); Bilirubin, Total 0.6 mg/dL (0.2-1.2); Calc. Creatinine Clearance 0 mL/min (70-130); Calcium 9.2 mg/dL (7.8-10.44); Carbon Dioxide 37 mmol/L (22-29); Chloride 97 mmol/L (98-107); Estimated GFR-MDRD 88; Globulin 3.1 g/dL (2.4-3.5); Glucose 259 mg/dL (70-105); Potassium 4.3 mmol/L (3.5-5.1); Protein, Total 6.7 g/dL (6.0-8.3); Sodium 137 mmol/L (136-145)
[2019-03-02 11:39] LABS: Anisocytosis SLIGHT = 6-15 cells (100X) (0-5/hpf); MDiff Complete? YES; Poikilocytosis SLIGHT = 6-15 cells (100X) (0-5/hpf)
[2019-03-02] MEDS ORDERED: hydrALAZINE 20 MG/ML VIAL SLOW IVP PRN (12:14)
[2019-03-02] MEDS ORDERED: Bisacodyl 5 MG TAB PO PRN (12:14)
[2019-03-02] MEDS ORDERED: Sodium Chloride 0.65% Nasal 44 ML BOT EA NARE PRN (12:14)
[2019-03-02] MEDS ORDERED: Dextrose 5% in Water 1,000 ML IV PRN (12:14)
[2019-03-02] MEDS ORDERED: Dextrose 50% Abboject 50 ML SYRINGE SLOW IVP PRN (12:14)
[2019-03-02] MEDS ORDERED: Acetaminophen 325 MG TAB PO PRN (12:14)
[2019-03-02] MEDS ORDERED: Bisacodyl 10 MG SUPP PR PRN (12:14)
[2019-03-02] MEDS ORDERED: Ondansetron PF 4 MG/2 ML Vial IVP PRN (12:14)
[2019-03-02] MEDS ORDERED: Senokot S 8.6-50 MG TAB PO PRN (12:14)
[2019-03-02] MEDS ORDERED: Furosemide 40 MG/4 ML VIAL ONE (12:20)
[2019-03-02] MEDS ORDERED: Nitroglycerin 2% Ointment 1 INCH/1 GM Packet ONE (12:20)
--- NOTE | 2019-03-02 12:25 | RAD ---
PORTABLE CHEST 1 VIEW: Date: 03/02/19 Time: 1124 hours HISTORY: Dyspnea. FINDINGS/IMPRESSION: Comparison made with exam of 09/27/18. The heart is enlarged. There is mild prominence of the pulmonary vascularity. No lobar consolidation, pneumothoraces, or large effusions are seen. Calcific tendinosis in right rotator cuff is again seen . POS: [facility]
[2019-03-02] MEDS ORDERED: Metolazone 5 MG TAB PO SCH (13:45)
[2019-03-02 14:42] VITALS: BMI 39.4
--- NOTE | 2019-03-02 14:45 | HP ---
PRIMARY CARE PHYSICIAN: Walter Chadwick MD. CHIEF COMPLAINT: Shortness of breath and swelling of feet and legs. HISTORY OF PRESENT ILLNESS: Ms. Sung is a 58-year-old female with known past medical history of chronic combined congestive heart failure as well as history of pulmonary artery hypertension, suspected sleep apnea, hypertension, dyslipidemia, morbid obesity, and diabetes, who presented to the ER with above-mentioned complaint. History is mainly obtained by the patient herself and supplemented by her granddaughter present at the bedside. Please go back in Chain the primary care physician to Rochelle Chadwick. Ms. Sung reports that for the last 2 weeks since , she has been noticing more and more swelling in her legs. For the last 2 or 3 days, she started to feel short of breath and it just is getting worse as well. She reports difficulty walking around without getting short of breath. She is also describing symptoms suggestive of orthopnea. She endorses abdominal bloating without any specific pain. No nausea, vomiting, or diarrhea. She denies any dysuria, frequency, or urgency. She denies any chest pain, cough, fever, or chills. The family reports that she was prescribed oxygen after her last hospitalization here in September 2018, at which time she was also admitted for acute congestive heart failure. However, the oxygen was discontinued later at home when her oxygen level improved and she no longer needed it. She was suspected to be having sleep apnea in September 2018 and was referred for outpatient sleep study with Dr. Johnsotn. Unfortunately, the patient could not afford it and it was never done. In the emergency room today upon presentation: She was hypertensive with a blood pressure of 182/97. Her oxygen saturations were in high 80s to low 90s on room air upon presentation, highest 91% in triage. She was immediately treated with oxygen and further workup was started. She underwent chest x-ray, which suggested mild pulmonary vascular congestion. She was found to have elevated BNP of 853 with normal cardiac enzymes. Rest of the workup was rather unremarkable and within normal limits. She was treated further with IV Lasix and transdermal nitroglycerin 2% 1-inch paste for hypertensive urgency. She is now being admitted to Medicine Service with presumptive diagnosis of acute on chronic congestive heart failure. PAST MEDICAL HISTORY: 1. Chronic congestive heart failure suspected combined. The patient follows up with Dr. Canales. 2. Morbid obesity. 3. Hypertension. 4. Dyslipidemia. 5. Diabetes mellitus type 2. PAST SURGICAL HISTORY: section x3. PAST PSYCHIATRIC HISTORY: Reviewed and negative. SOCIAL HISTORY: She is and lives at home with family. She is independent with ADLs and IADLs. No history of drug, tobacco, or alcohol abuse. FAMILY HISTORY: Significant for diabetes and hypertension among several family members. No strong family history of premature coronary artery disease, stroke, or cancer. ALLERGIES: NO KNOWN MEDICATION ALLERGIES. HOME MEDICATIONS: They further need to be confirmed, but listed in the emergency room records from today as follows; 1. Glipizide 10 mg p.o. b.i.d. 2. Metformin 1000 mg p.o. b.i.d. 3. Losartan 100 mg daily. 4. Pravastatin 20 mg daily. 5. Lasix 40 mg daily. 6. Carvedilol 3.125 mg b.i.d. 7. Hydralazine 50 mg three times a day. REVIEW OF SYSTEMS: CONSTITUTIONAL: Negative for weight loss or gain, ability to conduct usual activities. SKIN: Negative for rash, itching. EYES: Negative for double vision, pain. ENT/MOUTH: Negative for nose bleeding, neck stiffness, pain, tenderness. CARDIOVASCULAR: Negative for palpitations, dyspnea on exertion, orthopnea. RESPIRATORY: Negative for shortness of breath, wheezing, cough, hemoptysis, fever or night sweats. GASTROINTESTINAL: Negative for poor appetite, abdominal pain, heartburn, nausea, vomiting, constipation, or diarrhea. GENITOURINARY: Negative for urgency, frequency, dysuria, nocturia. MUSCULOSKELETAL: Negative for pain, swelling. NEUROLOGIC/PSYCHIATRIC: Negative for anxiety, depression. ALLERGY/IMMUNOLOGIC: Negative for skin rash, bleeding tendency. A 14-point review of system was done and it is negative except for those mentioned in the history and physical. LABORATORY DATA: Her CBC shows WBC 7.5, neutrophils 70%, hemoglobin 12.7, and platelet count of 217. Serum chemistry showed chloride 97, bicarb 37, and blood sugar 259. Liver enzymes within normal limits. Cardiac enzyme, troponin 0.010. BNP 853. IMAGING STUDIES: Chest x-ray by my review shows cardiomegaly and mild pulmonary vascular congestion. EKG by my review shows complete right bundle-branch block, nonspecific ST and T-wave changes, and sinus rhythm at 70 beats per minute. PHYSICAL EXAMINATION: VITAL SIGNS: Upon presentation; blood pressure 182/97, pulse of 65, respirations 18, saturating 97% on room air, and temperature 98.9. GENERAL: She is lying in bed without any acute distress. She does appear somewhat uncomfortable, but it seems to be mostly because she has a big abdomen. Awake, alert, and oriented x3. Family is at bedside. HEENT: Mucous membrane is moist and pink. No oropharyngeal exudate or erythema. Head is normocephalic and atraumatic. Pupils are equal and reactive to light and accommodation. Extraocular movement intact. NECK: Supple without any lymphadenopathy, JVD, or bruit. CHEST: Examination shows some faint bibasilar crackles bilaterally. No wheezing noticed. Rate and rhythm are regular without any murmurs, rubs, or gallops. ABDOMEN: Soft. Morbidly obese, nontender, and nondistended with positive bowel sounds. EXTREMITIES: Show +2 pitting edema bilaterally to lower extremities. NEUROLOGICAL: Nonfocal. SKIN: Free of any rashes or bruises. Feels warm and dry to touch. PSYCHIATRIC: Normal affect. IMPRESSION AND PLAN: 1. Acute hypoxic respiratory failure, this is secondary to acute on chronic congestive heart failure. The patient will be diuresed with IV Lasix b.i.d. as well as we will go ahead and give her a dose of Zaroxolyn. It seems like her symptoms started after she had dietary discretion on about 2 weeks ago. Otherwise, she is compliant with her medications. Cardiac enzymes are negative and we will continue to trend serial cardiac enzymes. Repeat BNP in the morning and follow strict I's and O's. We will also request consultation with inpatient-outpatient cardiac rehab and will try to set her up with Heart Failure Clinic as it was not done yet. She will benefit in long run. We will notify her physical aerodynamicist Dr. Canales as well and consult in-house as necessary. Currently, she is stable. If she becomes unstable or worsens: Consider Cardiology consultation formally. 2. Acute on chronic congestive heart failure, stage C. Mostly diastolic based on the echocardiogram done in September 2018. She will be diuresed as #1 with strict I's and Os, daily weight, and fluid restriction. We will also use transdermal nitroglycerin. 3. Uncontrolled hypertension. We will restart home medications once confirmed and continue transdermal nitroglycerin for now. Add p.r.n. antihypertensives as well. Restart her losartan, carvedilol, and hydralazine. 4. Diabetes mellitus. We will resume her home medications of glipizide. Hold metformin to avoid any metabolic acidosis or renal failure. We will start her on insulin sliding scale with frequent Accu-Cheks. 5. Morbid obesity with suspected obstructive sleep apnea. I discussed this in detail with the patient's family member and the patient herself. She has evidence of pulmonary arterial hypertension on the last echocardiogram, most likely secondary to obstructive sleep apnea. The patient's right-sided heart failure symptoms will continue to get worse until she gets a formal sleep study done and is started on CPAP. Unfortunately, there were financial constraints to do that. I have encouraged the family to pursue this again. They will see Dr. Johnston in outpatient setting once again. 6. Dyslipidemia. We will resume pravastatin once the dosage is confirmed. 7. Deep venous thrombosis and gastrointestinal prophylaxis. 8. Code status, full code, discussed with the patient. DISPOSITION: Ms. Sung is currently being admitted to the hospital for acute hypoxic respiratory failure, secondary to acute CHF exacerbation. Estimated length of stay at this time is at least 2 to 3 midnights. Further management will depend upon her clinical course. Job ID: [id number]
[2019-03-02 14:50] LABS: Troponin I Less than 0.010 ng/mL (< 0.028)
[2019-03-02] MEDS: Nitroglycerin 2% Ointment 1 INCH/1 GM Packet TOP SCH ×2 (15:18→21:22)
[2019-03-02] MEDS: hydrALAZINE 25 MG TAB PO SCH ×2 (15:25→21:21)
[2019-03-02] MEDS: Furosemide 40 MG/4 ML VIAL SLOW IVP SCH (15:27)
[2019-03-02 19:01] LABS: Troponin I 0.019 ng/mL (< 0.028)
[2019-03-02] MEDS: Famotidine 20 MG TAB PO SCH (21:22)
[2019-03-02] MEDS: Carvedilol 3.125 MG TAB PO SCH (21:22)
[2019-03-03 05:33] LABS: ALT (SGPT) 26 U/L (8-55); AST (SGOT) 21 U/L (5-34); Albumin 3.6 g/dL (3.5-5.0); Alkaline Phosphatase 86 U/L (40-150); BUN (Urea Nitrogen) 10 mg/dL (9.8-20.1); Bilirubin, Total 0.6 mg/dL (0.2-1.2); Calc. Creatinine Clearance 140 mL/min (70-130); Calcium 9.1 mg/dL (7.8-10.44); Estimated GFR-MDRD Greater than 90; Globulin 3.1 g/dL (2.4-3.5); Glucose 241 mg/dL (70-105); Magnesium 1.7 mg/dL (1.6-2.6); Protein, Total 6.7 g/dL (6.0-8.3)
[2019-03-03 05:42] LABS: Anion Gap 15 mmol/L (10-20); Carbon Dioxide 34 mmol/L (22-29); Chloride 94 mmol/L (98-107); Potassium 3.8 mmol/L (3.5-5.1); Sodium 139 mmol/L (136-145)
[2019-03-03 06:02] LABS: #Eosinphils 0.1 thou/uL (0.0-0.7); #Lymphocytes 1.5 thou/uL (1.20-3.40); #Monocytes 0.6 thou/uL (0.11-0.59); #Neutrophils 5.7 thou/uL (1.40-6.50); %Basophils 0.3 % (0.0-1.0); %Eosinophils 1.3 % (0.0-10.0); %Lymphocytes 18.4 % (21.0-51.0); %Monocytes 7.8 % (0.0-10.0); %Neutrophils 72.2 % (42.0-75.0); Hemoglobin 12.6 g/dL (12.0-16.0); MDiff Complete? YES; Mean Corpuscular Hemoglobin 25.8 pg (27.0-31.0); Mean Corpuscular Volume 89.1 fL (78.0-98.0); Mean Platelet Volume 9.4 fL (7.4-10.4); Platelet Count 217 thou/uL (130-400); RBC Distribution Width 14.1 % (11.5-14.5); Stomatocytes SLIGHT = 2-5 cells (100X) (0-1/hpf)
[2019-03-03] MEDS: Nitroglycerin 2% Ointment 1 INCH/1 GM Packet TOP SCH ×3 (06:29→21:13)
[2019-03-03] MEDS: Furosemide 40 MG/4 ML VIAL SLOW IVP SCH ×2 (06:29→14:18)
[2019-03-03] MEDS: hydrALAZINE 25 MG TAB PO SCH ×3 (08:47→21:13)
[2019-03-03] MEDS: Carvedilol 3.125 MG TAB PO SCH ×2 (08:47→21:13)
[2019-03-03] MEDS: Famotidine 20 MG TAB PO SCH ×2 (08:47→21:13)
[2019-03-03] MEDS: Enoxaparin Sodium 40 MG/0.4 ML SYRINGE SC SCH (08:48)
[2019-03-03] MEDS: Losartan 25 MG TAB PO SCH (09:56)
--- NOTE | 2019-03-03 10:54 | PDOC.PN ---
- Subjective Encounter Start Date: 03/03/19 Encounter Start Time: 09:10 -: old records requested/rev Patient seen and examined. No new complaints. No overnight events - Objective Resuscitation Status - Order Detail: 03/02/19 14:02 Resuscitation Status Routine Resuscitation Status: FULL: Full Resuscitation Discussed with: discussed w pt MAR Reviewed: Yes Vital Signs & Weight: Vital Signs (12 hours) Temp Pulse Resp BP Pulse Ox 03/03/19 07:37 97.5 F L 73 18 141/69 H 93 L 03/03/19 04:00 97.5 F L 75 18 147/67 H 92 L Weight Weight 200 lb 11.2 oz I&O: 03/02/19 03/03/19 03/04/19 06:59 06:59 06:59 Intake Total 400 Output Total 900 Balance -500 Result Diagrams: 03/03/19 04:40 03/03/19 04:40 Additional Labs: Accuchecks 03/03/19 03/02/19 03/02/19 05:27 20:31 16:34 POC Glucose 250 H 138 H 110 03/02/19 15:29 POC Glucose 123 H Radiology Reviewed by me: Yes EKG Reviewed by me: Yes Phys Exam - Physical Examination Constitutional: NAD HEENT: PERRLA, moist MMs, sclera anicteric Neck: no JVD, supple Respiratory: no wheezing, no rhonchi few basal rales Cardiovascular: RRR, no significant murmur, no rub Gastrointestinal: soft, non-tender, no distention, positive bowel sounds Musculoskeletal: pulses present, edema present Neurological: non-focal, normal sensation, moves all 4 limbs Psychiatric: normal affect, A&O x 3 Skin: no rash, normal turgor Dx/Plan (1) Acute respiratory failure with hypoxia Code(s): J96.01 - ACUTE RESPIRATORY FAILURE WITH HYPOXIA Status: Acute (2) Acute on chronic diastolic ACC/AHA stage C congestive heart failure Code(s): I50.33 - ACUTE ON CHRONIC DIASTOLIC (CONGESTIVE) HEART FAILURE Status : Acute (3) Diabetes type 2, controlled Code(s): E11.9 - TYPE 2 DIABETES MELLITUS WITHOUT COMPLICATIONS Status: Chronic (4) Dyslipidemia Code(s): E78.5 - HYPERLIPIDEMIA, UNSPECIFIED Status: Chronic (5) Hypertension Code(s): I10 - ESSENTIAL (PRIMARY) HYPERTENSION Status: Chronic (6) JASMYN (obstructive sleep apnea) Code(s): G47.33 - OBSTRUCTIVE SLEEP APNEA (ADULT) (PEDIATRIC) Status: Chronic (7) Obesity (BMI 30-39.9) Code(s): E66.9 - OBESITY, UNSPECIFIED Status: Chronic - Plan cont current plan of care * medication reviewed as below * symptomatic treatment * continue lasix * monitor and wean oxygen as tolerated * cardiac rehab * expecting discharge in 24-48 hours. Review of Systems - Review of Systems ENT: negative: Ear Pain, Ear Discharge, Nose Pain, Nose Discharge, Nose Congestion, Mouth Pain, Mouth Swelling, Throat Pain, Throat Swelling, Other Respiratory: Shortness of Breath, SOB with Excertion. negative: Cough, Dry, Hemoptysis, Pleuritic Pain, Sputum, Wheezing Cardiovascular: edema. negative: chest pain, palpitations, orthopnea, paroxysmal nocturnal dyspnea, light headedness, other Gastrointestinal: negative: Nausea, Vomiting, Abdominal Pain, Diarrhea, Constipation, Melena, Hematochezia, Other Genitourinary: negative: Dysuria, Frequency, Incontinence, Hematuria, Retention , Other Musculoskeletal: negative: Neck Pain, Shoulder Pain, Arm Pain, Back Pain, Hand Pain, Leg Pain, Foot Pain, Other Skin: negative: Rash, Lesions, Gasper, Bruising, Other - Medications/Allergies Allergies/Adverse Reactions: Allergies Allergy/AdvReac Type Severity Reaction Status Date / Time levofloxacin [From Levaquin] Allergy Verified 03/02/19 14:38 Medications: Current Medications Acetaminophen (Tylenol) 650 mg PO Q4H PRN PRN Reason: Headache/Fever/Mild Pain (1-3) Bisacodyl (Dulcolax) 10 mg PO DAILYPRN PRN PRN Reason: Constipation Bisacodyl (Dulcolax) 10 mg [place] DAILYPRN PRN PRN Reason: Constipation Carvedilol (Coreg) 3.125 mg PO BID [facility] Last Admin: 03/03/19 08:47 Dose: 3.125 mg Dextrose/Water (Dextrose 50%) 25 gm SLOW IVP PRN PRN PRN Reason: Hypoglycemia Enoxaparin Sodium (Lovenox) 40 mg SC 0900 [facility] Last Admin: 03/03/19 08:48 Dose: 40 mg Famotidine (Pepcid) 20 mg PO BID [facility] Last Admin: 03/03/19 08:47 Dose: 20 mg Furosemide (Lasix) 40 mg SLOW IVP 0600,1400 [facility] Last Admin: 03/03/19 06:29 Dose: 40 mg Glucagon (Glucagon) 1 mg IM PRN PRN PRN Reason: Hypoglycemia Hydralazine HCl (Apresoline) 10 mg SLOW IVP Q4H PRN PRN Reason: SBP > 170 and HR < 70 Hydralazine HCl (Apresoline) 50 mg PO TID [facility] Last Admin: 03/03/19 08:47 Dose: 50 mg Dextrose/Water (D5w) 1,000 mls @ 0 mls/hr IV .Q0M PRN PRN Reason: Hypoglycemia Insulin Human Lispro (Humalog) 0 units SC .MODERATE SLIDING SC PRN PRN Reason: Moderate Correctional Scale Insulin Human Lispro (Humalog) 0 units SC .BEDTIME SLIDING SC PRN PRN Reason: Bedtime Correctional Scale Losartan Potassium (Cozaar) 100 mg PO DAILY [facility] Last Admin: 03/03/19 09:56 Dose: 100 mg Nitroglycerin (Nitro-Bid 2% Ointment) 0.5 inch TOP Q8HR [facility] Last Admin: 03/03/19 06:29 Dose: 0.5 inch Ondansetron HCl (Zofran) 4 mg IVP Q6H PRN PRN Reason: Nausea/Vomiting Senna/Docusate Sodium (Senokot S) 2 tab PO BIDPRN PRN PRN Reason: Constipation Sodium Chloride ([place] Nasal [place] 0.65%) 0 ml EA NARE QIDPRN PRN PRN Reason: Nasal Congestion
[2019-03-03] MEDS: HumaLOG 300 UNITS/3 ML VIAL SC PRN ×3 (12:45→21:14)
[2019-03-04 05:43] LABS: #Eosinphils 0.1 thou/uL (0.0-0.7); #Lymphocytes 1.6 thou/uL (1.20-3.40); #Monocytes 0.6 thou/uL (0.11-0.59); #Neutrophils 5.4 thou/uL (1.40-6.50); %Basophils 0.3 % (0.0-1.0); %Eosinophils 1.6 % (0.0-10.0); %Lymphocytes 20.8 % (21.0-51.0); %Monocytes 7.9 % (0.0-10.0); %Neutrophils 69.3 % (42.0-75.0); Hemoglobin 12.9 g/dL (12.0-16.0); Mean Corpuscular HGB CONC 30.6 g/dL (32.0-36.0); Mean Corpuscular Volume 91.4 fL (78.0-98.0); Mean Platelet Volume 9.1 fL (7.4-10.4); Platelet Count 206 thou/uL (130-400); RBC Distribution Width 14.1 % (11.5-14.5); Red Blood Cell (RBC) Count 4.61 mill/uL (4.20-5.40); White Blood Cell (WBC) Count 7.8 thou/uL (4.8-10.8)
[2019-03-04] MEDS: Furosemide 40 MG/4 ML VIAL SLOW IVP SCH ×2 (05:51→13:51)
[2019-03-04] MEDS: Nitroglycerin 2% Ointment 1 INCH/1 GM Packet TOP SCH ×3 (05:51→21:19)
[2019-03-04 06:04] LABS: Anion Gap 11 mmol/L (10-20); BUN (Urea Nitrogen) 13 mg/dL (9.8-20.1); Calc. Creatinine Clearance 128 mL/min (70-130); Calcium 9.3 mg/dL (7.8-10.44); Carbon Dioxide 37 mmol/L (22-29); Chloride 95 mmol/L (98-107); Estimated GFR-MDRD 88; Glucose 304 mg/dL (70-105); Sodium 139 mmol/L (136-145); Uric Acid 4.2 mg/dL (2.6-6.0)
[2019-03-04 06:15] LABS: Troponin I 0.018 ng/mL (< 0.028)
[2019-03-04] MEDS: hydrALAZINE 25 MG TAB PO SCH ×3 (09:05→20:24)
[2019-03-04] MEDS: Carvedilol 3.125 MG TAB PO SCH ×2 (09:06→20:24)
[2019-03-04] MEDS: Enoxaparin Sodium 40 MG/0.4 ML SYRINGE SC SCH (09:06)
[2019-03-04] MEDS: Losartan 25 MG TAB PO SCH (09:06)
[2019-03-04] MEDS: Famotidine 20 MG TAB PO SCH ×2 (09:06→20:24)
[2019-03-04] MEDS: HumaLOG 300 UNITS/3 ML VIAL SC PRN ×3 (10:37→23:42)
--- NOTE | 2019-03-04 19:22 | PDOC.PN ---
- Subjective Encounter Start Date: 03/04/19 Encounter Start Time: 19:00 Subjective: f/u for diastolic CHF on Lasix IV. Feels better overall and less SOB. - Objective Resuscitation Status - Order Detail: 03/02/19 14:02 Resuscitation Status Routine Resuscitation Status: FULL: Full Resuscitation Discussed with: discussed w pt MAR Reviewed: Yes Vital Signs & Weight: Vital Signs (12 hours) Temp Pulse Resp BP BP Pulse Ox 03/04/19 15:07 97.7 F 60 18 146/67 H 92 L 03/04/19 13:51 64 03/04/19 13:00 97.7 F 64 12 97/54 L 95 03/04/19 09:05 64 166/67 H 03/04/19 09:04 97.9 F 59 L 13 166/67 H 95 Weight Weight 203 lb I&O: 03/03/19 03/04/19 03/05/19 06:59 06:59 06:59 Intake Total 400 1440 480 Output Total 900 3350 Balance -500 -1910 480 Result Diagrams: 03/04/19 05:15 03/04/19 05:15 Additional Labs: Accuchecks 03/04/19 03/04/19 03/04/19 16:39 10:30 05:44 POC Glucose 242 H 386 H 267 H 03/03/19 20:40 POC Glucose 329 H Laboratory Tests 09/27/18 03/02/19 03/03/19 12:14 11:00 04:40 B-Natriuretic Peptide 441.4 H 853.1 H 324.3 H TSH 3rd Generation 03/04/19 05:16 B-Natriuretic Peptide TSH 3rd Generation 1.1166 Radiology Reviewed by me: Yes (2D echo - EF 50-55%, diast dysfx) EKG Reviewed by me: Yes (Tele - SR) Phys Exam - Physical Examination Constitutional: NAD HEENT: PERRLA, sclera anicteric, oral pharynx no lesions Neck: no nodes, no JVD, supple, full ROM few basilar crackles Respiratory: no wheezing S1, S2 Cardiovascular: RRR, no significant murmur, no rub, gallop Gastrointestinal: soft, non-tender, no distention, positive bowel sounds mild LE edema Musculoskeletal: pulses present Neurological: normal sensation, moves all 4 limbs Psychiatric: A&O x 3 Skin: normal turgor, cap refill <2 seconds Dx/Plan (1) Acute on chronic diastolic ACC/AHA stage C congestive heart failure Code(s): I50.33 - ACUTE ON CHRONIC DIASTOLIC (CONGESTIVE) HEART FAILURE Status : Acute Comment: EF 50-55%, continue Lasix 40mg IV BID another 24h, continue Coreg, referral for outpt CHF clinic (2) Acute respiratory failure with hypoxia Code(s): J96.01 - ACUTE RESPIRATORY FAILURE WITH HYPOXIA Status: Acute Comment: Wean off O2 as clinically indicated (3) Diabetes type 2, controlled Code(s): E11.9 - TYPE 2 DIABETES MELLITUS WITHOUT COMPLICATIONS Status: Chronic Comment: ISS, resume Levemir, Glipizide, Metformin (4) Hypertension Code(s): I10 - ESSENTIAL (PRIMARY) HYPERTENSION Status: Chronic Qualifiers: Hypertension type: essential hypertension Qualified Code(s): I10 - Essential (primary) hypertension Comment: Continue Coreg, resume Hydralazine and Losartan (5) Obesity (BMI 30-39.9) Code(s): E66.9 - OBESITY, UNSPECIFIED Status: Chronic Comment: Weight loss resources - Plan social service manager, out of bed/ambulate, DVT proph w/SCDs Stable currently -: Outpt referral to HF clinic -: Continue Lasix 40mg IV BID another 24h -: Resume home DM regimen -: Resume Hydralazine, Losartan * Home in 24h
[2019-03-04] MEDS: glipiZIDE 10 MG TAB PO SCH (20:23)
[2019-03-04] MEDS: metFORMIN 500 MG TAB PO SCH (20:23)
[2019-03-04] MEDS: Gabapentin 300 MG CAP PO SCH (20:24)
[2019-03-04] MEDS ORDERED: Pravastatin Sodium 20 MG TAB PO SCH (21:00)
[2019-03-05] MEDS: Nitroglycerin 2% Ointment 1 INCH/1 GM Packet TOP SCH ×2 (06:11→14:57)
[2019-03-05] MEDS: Furosemide 40 MG/4 ML VIAL SLOW IVP SCH ×2 (06:11→15:09)
[2019-03-05] MEDS ORDERED: Ferrous Sulfate 325 MG TAB PO SCH (08:00)
[2019-03-05] MEDS ORDERED: Vitamin E 400 UNITS CAP PO SCH (09:00)
[2019-03-05] MEDS ORDERED: Aspirin Chewable 81 MG TAB PO SCH (09:00)
[2019-03-05] MEDS: metFORMIN 500 MG TAB PO SCH (09:12)
[2019-03-05] MEDS: glipiZIDE 10 MG TAB PO SCH ×2 (09:13→15:08)
[2019-03-05] MEDS: Famotidine 20 MG TAB PO SCH (09:13)
[2019-03-05] MEDS: Losartan 25 MG TAB PO SCH (09:13)
[2019-03-05] MEDS: Carvedilol 3.125 MG TAB PO SCH (09:14)
[2019-03-05] MEDS: Gabapentin 300 MG CAP PO SCH ×2 (09:14→15:08)
[2019-03-05] MEDS: Enoxaparin Sodium 40 MG/0.4 ML SYRINGE SC SCH (09:14)
[2019-03-05] MEDS: hydrALAZINE 25 MG TAB PO SCH ×2 (09:56→15:10)
[2019-03-05] MEDS: HumaLOG 300 UNITS/3 ML VIAL SC PRN (11:26)
[2019-03-05 16:28] VITALS: BP 153/73; TEMP 98.2
[2019-03-05] MEDS ORDERED: INSULIN DETEMIR 22 UNIT SQ SCH (17:00)
[2019-03-05] MEDS ORDERED: Insulin Glargine 22 UNITS in Pre-Filled Syringe SC SCH (17:00)
--- NOTE | 2019-03-06 01:31 | DIS ---
DATE OF ADMISSION: 03/02/2019 DATE OF DISCHARGE: 03/05/2019 DISCHARGE DIAGNOSES: 1. Acute on chronic diastolic [employer] stage C congestive heart failure with ejection fraction of 50% to 55%, stable. 2. Acute hypoxic respiratory failure secondary to #1, improved. 3. Diabetes mellitus type 2, insulin requiring, labile. 4. Hypertension, stable. 5. Morbid obesity. CONSULTATIONS: None. PERTINENT LAB AND X-RAY FINDINGS: Basic metabolic profile within normal limits. Magnesium 1.7. Troponin I negative x4. BNP ranged between 324 to 853. TSH 1.12. CBC within normal limits. Portable chest x-ray dated 03/02/2019, showed mild pulmonary vascular prominence. HOSPITAL COURSE: The patient was admitted to the telemetry unit after initially presenting with increased shortness of breath and lower extremity edema. The patient underwent general evaluation including chest imaging showing evidence of pulmonary edema. The patient was noted with elevated BNP over 800 and treated for heart failure exacerbation. The patient with preserved ejection fraction of 50% to 55% by 2D transthoracic echocardiogram performed in 09/2018. The patient received IV Lasix throughout the hospital course with overall improvement in respiratory status and diuresis for approximate 4-5 pounds weight loss. The patient was given information and education regarding heart failure as well as diabetes and hypertension management. The patient also referred to the outpatient Heart failure Clinic for further education and ongoing supervision and monitoring. Overall, the patient remained clinically stable throughout the hospital course, tolerating regular oral intake and voiding appropriately. I have examined the patient at the time of discharge and discussed followup instructions. The patient verbalized understanding and agreement ready for discharge on 03/05/2019. DISCHARGE MEDICATIONS: 1. Aspirin 81 mg p.o. daily. 2. Gabapentin 300 mg p.o. t.i.d. 3. Glipizide 10 mg p.o. t.i.d. 4. Hydralazine 50 mg p.o. t.i.d. 5. Levemir 22 units subcutaneously at bedtime. 6. Losartan 100 mg p.o. daily. 7. Metformin 1000 mg p.o. b.i.d. 8. Pravachol 20 mg p.o. daily. 9. Vitamin E 800 units p.o. daily. 10. Coreg 3.125 mg p.o. b.i.d. 11. Ferrous sulfate 325 mg p.o. daily. 12. Lasix 40 mg p.o. daily. FOLLOWUP: The patient to follow up with Dr. Orville Javier within 7 days of discharge. The patient will follow up with Dr. Hans Johnston to undergo formal sleep study evaluation. The patient may follow up with Dr. Canales with [facility] Cardiology Service. CONDITION ON DISCHARGE: Stable. ACTIVITY: Ad-amy. DIET: ADA heart healthy and low-sodium. SPECIAL INSTRUCTIONS: Outpatient referral to Heart failure Clinic. CODE STATUS: Full. DISPOSITION: Home, 03/05/2019. TIME SPENT: Total time preparing and coordinating discharge, 35 minutes. Job ID: [id number]
== END 2019-03-05 19:37 | disposition home or self-care (01) | DRG 291 ==
LOC: ERS 10:29 → ERHOLD 12:35 → 2NO 14:33
PROVIDERS: ADMIT Internal Medicine; ATTEND Internal Medicine
DX: I11.0 Hypertensive heart disease with heart failure (principal); J96.01 Acute respiratory failure with hypoxia; E78.5 Hyperlipidemia, unspecified; E66.01 Morbid (severe) obesity due to excess calories; E11.9 Type 2 diabetes mellitus without complications; G47.33 Obstructive sleep apnea (adult) (pediatric); I50.33 Acute on chronic diastolic (congestive) heart failure; Z68.38 Body mass index [BMI] 38.0-38.9, adult; Z79.899 Other long term (current) drug therapy; Z88.1 Allergy status to other antibiotic agents; Z79.84 Long term (current) use of oral hypoglycemic drugs
CPT/HCPCS: 36415; 36416; 71045; 80048; 80053; 83735; 83880; 84443; 84484; 84550; 85025; 93005; 93798; 96374; J1650; J1825; J1940

== ENCOUNTER 2021-08-28 11:20 | Outpatient (CLI) | payer OTHER | END 2021-08-28 11:21 | disposition home or self-care (01) | LOC: RAD 11:20 | PROVIDERS: ATTEND Internal Medicine Critical Care Medicine | DX: R06.00 Dyspnea, unspecified (principal) | CPT/HCPCS: 71046 ==